=== PATIENT | female | born 1945 | race Caucasian/White ===

== ENCOUNTER 2020-06-14 11:25 | Inpatient (IN) | payer OTHER ==
[2020-06-14 12:18] LABS: Absolute Lymphocytes (CBC) 0.8 K/uL (0.7-4.9); Basophils % 0.5 % (0-1.3); Hematocrit 38.1 % (36.0-45.0); RBC Red Blood Cell Count 3.86 M/uL (3.86-4.86)
--- NOTE | 2020-06-14 12:23 | RAD REPORT ---
EXAM DESCRIPTION: RAD - Chest Single View - 06/14/2020 11:59 am CLINICAL HISTORY: DYSPNEA COMPARISON: February 2018 TECHNIQUE: AP portable chest image was obtained 06/14/2020 11:59 am . FINDINGS: Patient has a baseline interstitial fibrotic pattern. Extensive interstitial and alveolar opacification is present in the lower left lung field. Chest findings are distorted by rotation. Deta il is limited by the densely calcified breast implant capsules. No definitive no opacification in the left base. Heart and vasculature are normal. No measurable pleural effusion and no pneumothorax. No acute bony abnormality seen. No acute aortic findings suspected. IMPRESSION: Moderately large left lung base pneumonia
[2020-06-14 12:28] LABS: Protime INR 1.05
[2020-06-14 12:37] LABS: ALT/SGPT 21 U/L (12-78); AST/SGOT 12 U/L (15-37); Albumin 2.5 g/dL (3.4-5.0); Alkaline Phosphatase 67 U/L (45-117); BUN Blood Urea Nitrogen 46 mg/dL (7-18); Bicarbonate 29 mmol/L (21-32); Bilirubin Direct 0.2 mg/dL (0-0.2); Bilirubin Total 0.4 mg/dL (0.2-1.0); Glucose Level 102 mg/dL (74-106); Magnesium 2.8 mg/dL (1.8-2.4); NT PRO-BNP 6598 pg/mL (<125); Potassium 3.8 mmol/L (3.5-5.1); Protein, Total 7.2 g/dL (6.4-8.2); Sodium Level 141 mmol/L (136-145); Troponin (Emerg Dept Use Only) < 0.02 ng/mL (0.0-0.045)
[2020-06-14 12:41] LABS: Urine Blood NEGATIVE (NEG); Urine Glucose NEGATIVE (NEG); Urine Protein NEGATIVE (NEG)
[2020-06-14] MEDS ORDERED: CEFTRIAXONE/SWI 1gm 1 GM/10 ML SYR ONE (13:00)
[2020-06-14 13:17] LABS: Blood Morphology Comment NOT SEEN (NOT SEEN); Platelet Estimate ADEQ
[2020-06-14] MEDS ORDERED: AZITHROMYCIN IV 500 MG in NA CHLORIDE 0.9% 250 ML IVPB ONE ×4 (14:00)
[2020-06-14] MEDS ORDERED: NA CHLORIDE 0.9% 500 ML ONE (14:11)
[2020-06-14 14:18] LABS: Urine Bacteria <20 /HPF (<20); Urine Culture Reflex Order REFLEXED; Urine Mucus 2+ /HPF (NONE SEEN); Urine RBC <5 /HPF (NONE SEEN)
--- NOTE | 2020-06-14 14:19 | EDPHYS ---
Physician Documentation [facility] Name: Ni Mcgowan Age: 74 yrs Sex: Female : 1945 Arrival Date: 06/14/2020 Time: : Bed 2 Private MD: ED Physician Lalito Benson HPI: 06/14 12:30 This 74 yrs old Female presents to ER via EMS with complaints of shortness of jr8 breath. 12:30 The patient has shortness of breath at rest. Onset: The symptoms/episode began/occurred jr8 gradually. Duration: The symptoms are continuous. The patient's shortness of breath has no apparent modifying factors. Associated signs and symptoms: Pertinent positives: fatigue . Severity of symptoms: At their worst the symptoms were moderate in the emergency department the symptoms are unchanged. The patient has not experienced similar symptoms in the past. The patient has not recently seen a physician. Patient stated that family called EMS after noticing her nodding off more than normal. Stated that she has been more short of breath and more fatigued. Patient alert to person, place, time, event upon arrival. Historical: - Allergies: Percocet; rb1 - Home Meds: gabapentin 600 mg oral tab 1 tab four times a day [Active]; buprenorphine HCl buccal 8 rb1 mg buccal three times a day [Active]; tizanidine 4 mg oral cap 1 cap twice a day [Active]; aspirin 81 mg Oral chew 1 tab once daily [Active]; pantoprazole 40 mg oral TbEC 1 tab once daily [Active]; triamterene-hydrochlorothiazid 37.5-25 mg Oral cap 1 cap once daily [Active]; clonidine HCl 0.2 mg Oral tab 1 tab 2 times per day [Active]; pravastatin 20 mg oral tab 1 tab once daily [Active]; montelukast 10 mg oral tab 1 tab once daily [Active]; carvedilol 25 mg oral tab 1 tab 2 times per day [Active]; acetazolamide 250 mg Oral tab 1 tab once daily [Active]; pro air as needed [Active]; Spiriva with HandiHaler 18 mcg inhalation CpDv 1 cap once daily [Active]; trazodone 100 mg Oral tab [Active]; - PMHx: 11: Fibromyalgia; Emphysema; Scoliosis; Neuropathy; rb1 - PSHx: 11:27 Spleenectomy; Hernia repair; Breast Implants; Hysterectomy; Tonsillectomy; Colon; rb1 - Immunization history:: Adult Immunizations unknown. - Social history:: Smoking status: Patient reports the use of cigarette tobacco products, smokes one pack cigarettes per day. ROS: 12:30 Eyes: Negative for injury, pain, redness, and discharge, ENT: Negative for injury, jr8 pain, and discharge, Neck: Negative for injury, pain, and swelling, Abdomen/GI: Negative for abdominal pain, nausea, vomiting, diarrhea, and constipation, Back: Negative for injury and pain, MS/Extremity: Negative for injury and deformity, Skin: Negative for injury, rash, and discoloration, Neuro: Negative for headache, weakness, numbness, tingling, and seizure. 12:30 Cardiovascular: Positive for edema. 12:30 Respiratory: Positive for dyspnea on exertion, shortness of breath. Exam: 12:30 ENT: Nares patent. No nasal discharge, no septal abnormalities noted. Tympanic jr8 membranes are normal and external auditory canals are clear. Oropharynx with no redness, swelling, or masses, exudates, or evidence of obstruction, uvula midline. Mucous membranes moist. Neck: Trachea midline, no thyromegaly or masses palpated, and no cervical lymphadenopathy. Supple, full range of motion without nuchal rigidity, or vertebral point tenderness. No Meningismus. Cardiovascular: Regular rate and rhythm with a normal S1 and S2. No gallops, murmurs, or rubs. Normal PMI, no JVD. No pulse deficits. Abdomen/GI: Soft, non-tender, with normal bowel sounds. No distension or tympany. No guarding or rebound. No evidence of tenderness throughout. Back: No spinal tenderness. No costovertebral tenderness. Full range of motion. Skin: Warm, dry with normal turgor. Normal color with no rashes, no lesions, and no evidence of cellulitis. MS/ Extremity: Pulses equal, no cyanosis. Neurovascular intact. Full, normal range of motion. Neuro: Awake and alert, GCS 15, oriented to person, place, time, and situation. Cranial nerves II-XII grossly intact. Motor strength 5/5 in all extremities. Sensory grossly intact. Cerebellar exam normal. Normal gait. 12:30 Eyes: Periorbital structures: swelling, that is mild, bilaterally, Pupils: equal, round, and reactive to light and accomodation, Extraocular movements: intact throughout, Conjunctiva: normal, Corneas: are normal, Sclera: no appreciated abnormality, Anterior chamber: normal, Lids and lashes: appear normal. 12:30 Cardiovascular: Rate: normal, Rhythm: regular, Pulses: Pulses are 2+ in right radial artery and left radial artery. Edema: 2+ edema to level of left midcalf, left ankle, left foot, right midcalf, right ankle and right foot. 12:30 Respiratory: the patient does not display signs of respiratory distress, Respirations: tachypnea, that is mild, Breath sounds: decreased breath sounds, that are moderate, are scattered. Vital Signs: 11:26 BP 168 / 85; Pulse 92; Resp 22; Pulse Ox 90% on R/A; jl7 11:26 Temp 98.4; jl7 12:14 BP 130 / 49; Pulse 66; Resp 23 S; Pulse Ox 95% on 2 lpm NC; Pain 0/10; jl7 13:13 BP 107 / 51; Pulse 58; Resp 16 S; Pulse Ox 96% on 2 lpm NC; jl7 14:15 BP 109 / 50; Pulse 72; Resp 17; Pulse Ox 99% on 2 lpm NC; jl7 14:15 Weight 39.46 kg (R); jl7 15:30 BP 121 / 59; Pulse 64; Resp 17 S; Pulse Ox 96% on 2 lpm NC; 7 17:00 BP 110 / 52; Pulse 55; Resp 17; Pulse Ox 98% on 2 lpm NC; 7 MDM: 11:34 Patient medically screened. [facility] 14:17 Data reviewed: vital signs, nurses notes, lab test result(s), EKG, radiologic studies, jr8 plain films. Data interpreted: Pulse oximetry: on room air is 99 %. Interpretation: normal. Counseling: I had a detailed discussion with the patient and/or guardian regarding: the historical points, exam findings, and any diagnostic results supporting the discharge/admit diagnosis, lab results, radiology results, the need for further work-up and treatment in the hospital. 14:53 ED course: Discussed case with Dr. Bates and will see patient . jr8 06/14 11:34 Order name: Basic Metabolic Panel jr8 06/14 11:34 Order name: CBC with Diff 8 06/14 11:34 Order name: LFT's; Complete Time: 13:12 8 06/14 11:34 Order name: Magnesium; Complete Time: 13:12 8 06/14 11:34 Order name: NT PRO-BNP; Complete Time: 13:12 8 06/14 11:34 Order name: PT-INR; Complete Time: 13:12 8 06/14 11:34 Order name: Troponin (emerg Dept Use Only); Complete Time: 13:12 8 06/14 11:34 Order name: Urine For Protein, Random; Complete Time: 12:27 8 06/14 11:35 Order name: Basic Metabolic Panel; Complete Time: 13:12 EDSC 06/14 11:35 Order name: CBC with Automated Diff; Complete Time: 13:43 EDMS 06/14 12:28 Order name: Blood Culture Adult (2) [facility] 06/14 12:28 Order name: Procalcitonin; Complete Time: 13:12 [facility] 06/14 12:33 Order name: Urine Dipstick--Ancillary (enter results) 1 06/14 11:34 Order name: XRAY Chest (1 view); Complete Time: 12:27 8 06/14 11:34 Order name: EKG; Complete Time: 11:35 [facility] 06/14 11:34 Order name: Cardiac monitoring; Complete Time: 12:14 8 06/14 12:33 Order name: Urine Dipstick-Ancillary; Complete Time: 13:12 EDSC 06/14 13:18 Order name: Manual Differential; Complete Time: 13:43 EDSC 06/14 13:58 Order name: Urine Microscopic Only; Complete Time: 14:19 8 06/14 14:20 Order name: Urine Culture EDSC 06/14 14:50 Order name: TSH; Complete Time: 15:48 8 06/14 14:50 Order name: Cortisol; Complete Time: 15:48 8 06/14 14:52 Order name: SARS-COV-2 RT PCR; Complete Time: 18:15 EDSC 06/14 15:49 Order name: ABG; Complete Time: 16:35 8 06/14 15:54 Order name: CONS Physician Consult EDSC 06/14 11:34 Order name: EKG - Nurse/Tech; Complete Time: 12:14 8 06/14 11:34 Order name: IV Saline Lock; Complete Time: 12:13 8 06/14 11:34 Order name: Labs collected and sent; Complete Time: 12:13 8 06/14 11:34 Order name: O2 Per Protocol; Complete Time: 12:13 8 06/14 11:34 Order name: O2 Sat Monitoring; Complete Time: 12:14 jr8 Administered Medications: Discontinued: NS 0.9% 500 ml IV at bolus once 13:05 Drug: Rocephin 1 grams Route: IV; Rate: calculated rate; Site: right forearm; jl7 13:08 Follow up: Response: No adverse reaction; IV Status: Completed infusion jl7 13:12 Drug: Zithromax 500 mg Route: IVPB; Infused Over: 1 hrs; Site: right forearm; jl7 14:12 Follow up: Response: No adverse reaction; IV Status: Completed infusion jl7 14:14 Drug: NS 0.9% 500 ml Route: IV; Rate: bolus; Site: right forearm; jl7 15:30 Follow up: IV Status: Completed infusion; Order to discontinue infusion jl7 14:44 Drug: Lasix 40 mg {Note: BP 109/50, P 79.} Route: IVP; Site: right forearm; rb1 16:37 Follow up: Response: No adverse reaction jl7 Disposition: 18:18 Co-signature as Attending Physician, Lalito Benson MD. rn Disposition: 06/14/20 14:18 Hospitalization ordered by Cj Burden for Inpatient Admission. Preliminary diagnosis are Acute and chronic respiratory failure with hypoxia, Chronic obstructive pulmonary disease with (acute) exacerbation, Pneumonia due to other specified bacteria. - Bed requested for Telemetry/MedSurg (Inpatient). - Status is Inpatient Admission. jl7 - Condition is Fair. - Problem is new. - Symptoms have improved. Signatures: Dispatcher [employer] Salima Shen RN RN dw Nieto, Roman, MD MD rn Martinez, Eric em1 Roszak, Josh, PA PA jr8 Miriam Moreno, RN RN rb1 Navid Nolasco RN RN jl7 Corrections: (The following items were deleted from the chart) 14:31 14:18 Hospitalization Ordered by Dwain Moura MD for Inpatient Admission. Preliminary jr8 diagnosis is Acute and chronic respiratory failure with hypoxia; Chronic obstructive pulmonary disease with (acute) exacerbation; Pneumonia due to other specified bacteria. Bed requested for Telemetry/MedSurg (Inpatient). Status is Inpatient Admission. Condition is Fair. Problem is new. Symptoms have improved. jr8 14:52 12:29 CORONAVIRUS+ ordered. EDMS EDMS 16:47 14:31 06/14/2020 14:18 Hospitalization Ordered by A Bertram GALLARDO for Inpatient Admission. em1 Preliminary diagnosis is Acute and chronic respiratory failure with hypoxia; Chronic obstructive pulmonary disease with (acute) exacerbation; Pneumonia due to other specified bacteria. Bed requested for Telemetry/MedSurg (Inpatient). Status is Inpatient Admission. Condition is Fair. Problem is new. Symptoms have improved. jr8 16:50 16:47 06/14/2020 14:18 Hospitalization Ordered by A Bertram GALLARDO for Inpatient Admission. em1 Preliminary diagnosis is Acute and chronic respiratory failure with hypoxia; Chronic obstructive pulmonary disease with (acute) exacerbation; Pneumonia due to other specified bacteria. Bed requested for Telemetry/MedSurg (Inpatient). Status is Inpatient Admission. Condition is Fair. Problem is new. Symptoms have improved. em1 17:14 16:50 06/14/2020 14:18 Hospitalization Ordered by A Bertram GALLARDO for Inpatient Admission. dw Preliminary diagnosis is Acute and chronic respiratory failure with hypoxia; Chronic obstructive pulmonary disease with (acute) exacerbation; Pneumonia due to other specified bacteria. Bed requested for Telemetry/MedSurg (Inpatient). Status is Inpatient Admission. Condition is Fair. Problem is new. Symptoms have improved. em1 18:18 17:14 06/14/2020 14:18 Hospitalization Ordered by A Bertram GALLARDO for Inpatient Admission. jl7 Preliminary diagnosis is Acute and chronic respiratory failure with hypoxia; Chronic obstructive pulmonary disease with (acute) exacerbation; Pneumonia due to other specified bacteria. Bed requested for Telemetry/MedSurg (Inpatient). Status is Inpatient Admission. Condition is Fair. Problem is new. Symptoms have improved. dw
--- NOTE | 2020-06-14 14:19 | ER ---
Nurse's Notes [facility] Name: Ni Mcgowan Age: 74 yrs Sex: Female : 1945 Arrival Date: 06/14/2020 Time: 11:27 Bed 2 Private MD: Diagnosis: Acute and chronic respiratory failure with hypoxia;Chronic obstructive pulmonary disease with (acute) exacerbation;Pneumonia due to other specified bacteria Presentation: 06/14 11:27 Chief complaint: EMS states: Pt. is feeling weak and unable to sit up. Bilateral edema rb1 noted to lower extremities and bilateral eyes. Pt. is A \T\ O x 4, BP 157/73, P 105, 91% 2 L NC T 99.3. History of Scoliosis, Emphysema, Breast Implants, and Neuropathy. Pt. took Albuterol at 1057 at home. 11:27 Method Of Arrival: EMS: [facility] rb1 11:27 Acuity: ANNA 3 rb1 11:54 Coronavirus screen: Client denies travel out of the [place] in the last 14 days. At this jl7 time, the client does not indicate any symptoms associated with coronavirus-19. Ebola Screen: No symptoms or risks identified at this time. Initial Sepsis Screen: Does the patient meet any 2 criteria? No. Patient's initial sepsis screen is negative. Does the patient have a suspected source of infection? No. Patient's initial sepsis screen is negative. Risk Assessment: Do you want to hurt yourself or someone else? Patient reports no desire to harm self or others. Onset of symptoms is unknown. Care prior to arrival: None. Transition of care: patient was not received from another setting of care. Triage Assessment: 11:27 General: Appears in no apparent distress. Behavior is calm, cooperative. Neuro: Level rb1 of Consciousness is awake, alert, obeys commands, Oriented to person, place, time, situation. Neuro: Reports weakness. Cardiovascular: Patient's skin is warm and dry. Respiratory: Airway is patent Respiratory effort is even, unlabored, Respiratory pattern is regular, symmetrical. Musculoskeletal: Range of motion: intact in all extremities. Historical: - Allergies: 11:27 Percocet; rb1 - Home Meds: 11:27 gabapentin 600 mg oral tab 1 tab four times a day [Active]; buprenorphine HCl buccal 8 rb1 mg buccal three times a day [Active]; tizanidine 4 mg oral cap 1 cap twice a day [Active]; aspirin 81 mg Oral chew 1 tab once daily [Active]; pantoprazole 40 mg oral TbEC 1 tab once daily [Active]; triamterene-hydrochlorothiazid 37.5-25 mg Oral cap 1 cap once daily [Active]; clonidine HCl 0.2 mg Oral tab 1 tab 2 times per day [Active]; pravastatin 20 mg oral tab 1 tab once daily [Active]; montelukast 10 mg oral tab 1 tab once daily [Active]; carvedilol 25 mg oral tab 1 tab 2 times per day [Active]; acetazolamide 250 mg Oral tab 1 tab once daily [Active]; pro air as needed [Active]; Spiriva with HandiHaler 18 mcg inhalation CpDv 1 cap once daily [Active]; trazodone 100 mg Oral tab [Active]; - PMHx: 11:27 Fibromyalgia; Emphysema; Scoliosis; Neuropathy; rb1 - PSHx: 11:27 Spleenectomy; Hernia repair; Breast Implants; Hysterectomy; Tonsillectomy; Colon; rb1 - Immunization history:: Adult Immunizations unknown. - Social history:: Smoking status: Patient reports the use of cigarette tobacco products, smokes one pack cigarettes per day. Screenin:30 Abuse screen: Denies threats or abuse. Denies injuries from another. Nutritional jl7 screening: No deficits noted. Tuberculosis screening: No symptoms or risk factors identified. Fall Risk Fall in past 12 months (25 points). Secondary diagnosis (15 points) impaired mobility, IV access (20 points). Ambulatory Aid- Crutches/Cane/Walker (15 pts). Gait- Weak (10 pts.). Mental Status- Oriented to own ability (0 pts). Total Patiño Fall Scale indicates High Risk Score (45 or more points). Fall prevention measures have been instituted. Side Rails Up X 2 Placed Close to Nursing Station Frequent Obs/Assessments Occuring Family Present and informed to notify staff if the need to leave the bedside As available patient and family educated on Fall Prevention Program and Strategies. Assessment: 11:30 General: Appears in no apparent distress. uncomfortable, Behavior is calm, cooperative, jl7 appropriate for age. Pain: Denies pain. Neuro: Level of Consciousness is awake, alert, obeys commands, Oriented to person, place, time, situation, Weakness all over. Speech is normal. Cardiovascular: Patient's skin is warm and dry. Edema is 2+ to right midcalf, right ankle, right foot and right toes edema noted to bilateral eyes. Respiratory: Airway is patent Respiratory effort is even, unlabored, Respiratory pattern is symmetrical, tachypnea. GI: Abdomen is round distended, Stools are reported to be constipated. Last BM was June 07, 2020. : No signs and/or symptoms were reported regarding the genitourinary system. Derm: Skin is pink, warm \T\ dry. Musculoskeletal: Scoliosis noted. 13:13 Reassessment: Patient appears in no apparent distress at this time. Patient and/or jl7 family updated on plan of care and expected duration. Pain level reassessed. Neuro: Level of Consciousness is obeys commands, confused, Oriented to person, place, time, situation. 14:16 Reassessment: Patient appears in no apparent distress at this time. No changes from jl7 previously documented assessment. Patient and/or family updated on plan of care and expected duration. Pain level reassessed. 14:47 Reassessment: Patient appears in no apparent distress at this time. Daughter is at the [facility] bedside. 16:00 Reassessment: Patient appears in no apparent distress at this time. No changes from jl7 previously documented assessment. Patient and/or family updated on plan of care and expected duration. Pain level reassessed. Patient is alert, oriented x 3, equal unlabored respirations, skin warm/dry/pink. 17:00 Reassessment: Patient appears in no apparent distress at this time. Patient and/or jl7 family updated on plan of care and expected duration. Pain level reassessed. Patient is alert, oriented x 3, equal unlabored respirations, skin warm/dry/pink. Vital Signs: 11:26 BP 168 / 85; Pulse 92; Resp 22; Pulse Ox 90% on R/A; jl7 11:26 Temp 98.4; jl7 12:14 BP 130 / 49; Pulse 66; Resp 23 S; Pulse Ox 95% on 2 lpm NC; Pain 0/10; jl7 13:13 BP 107 / 51; Pulse 58; Resp 16 S; Pulse Ox 96% on 2 lpm NC; jl7 14:15 BP 109 / 50; Pulse 72; Resp 17; Pulse Ox 99% on 2 lpm NC; jl7 14:15 Weight 39.46 kg (R); jl7 15:30 BP 121 / 59; Pulse 64; Resp 17 S; Pulse Ox 96% on 2 lpm NC; jl7 17:00 BP 110 / 52; Pulse 55; Resp 17; Pulse Ox 98% on 2 lpm NC; jl7 ED Course: 11:26 Arm band placed on right wrist. jl7 11:27 Patient arrived in ED. em1 11:30 Patient has correct armband on for positive identification. Placed in gown. Bed in low jl7 position. Call light in reach. Side rails up X 1. gambling monitor on. Pulse ox on. NIBP on. Warm blanket given. 11:30 Initial lab(s) drawn, by me, sent to lab. Urine collected: clean catch specimen, clear, jl7 molly colored, EKG done, by ED staff, reviewed by Palomo CALL. Inserted saline lock: 20 gauge in right forearm, using aseptic technique. Blood collected. 11:34 aPlomo Mckenzie PA is PHCP. jr8 11:34 Lalito Benson MD is Attending Physician. jr8 11:35 Triage completed. rb1 11:42 Navid Nolasco, EMERSON is Primary Nurse. jl7 12:00 XRAY Chest (1 view) In Process Unspecified. EDMS 12:05 First set of blood cultures drawn by me. jl7 12:45 Second set of blood cultures drawn by ED staff, COVID-19 swab sent to lab. jl7 13:25 Urine Dipstick--Ancillary (enter results) Sent. jl7 13:25 Blood Culture Adult (2) Sent. jl7 13:25 Basic Metabolic Panel Sent. jl7 13:26 CBC with Diff Sent. jl7 13:27 No provider procedures requiring assistance completed. Patient admitted, IV remains in jl7 place. intact, No redness/swelling at site. 14:18 Dwain Moura MD is Hospitalizing Provider. jr8 14:31 Cj Burden MD is Hospitalizing Provider. jr8 16:38 Urine Culture Sent. jl7 Administered Medications: Discontinued: NS 0.9% 500 ml IV at bolus once 13:05 Drug: Rocephin 1 grams Route: IV; Rate: calculated rate; Site: right forearm; jl7 13:08 Follow up: Response: No adverse reaction; IV Status: Completed infusion jl7 13:12 Drug: Zithromax 500 mg Route: IVPB; Infused Over: 1 hrs; Site: right forearm; jl7 14:12 Follow up: Response: No adverse reaction; IV Status: Completed infusion jl7 14:14 Drug: NS 0.9% 500 ml Route: IV; Rate: bolus; Site: right forearm; jl7 15:30 Follow up: IV Status: Completed infusion; Order to discontinue infusion jl7 14:44 Drug: Lasix 40 mg {Note: BP 109/50, P 79.} Route: IVP; Site: right forearm; rb1 16:37 Follow up: Response: No adverse reaction trisha Outcome: 14:18 Decision to Hospitalize by Provider. sara 18:17 Admitted to Tele accompanied by tech, family with patient, via wheelchair, room 230, trisha with chart, Report called to EMERSON Murphy 18:17 Condition: stable 18:17 Discharge instructions given to patient, family, Instructed on the need for admit, Demonstrated understanding of instructions. 18:18 Patient left the ED. trisha Signatures: Dispatcher [employer] EDAdebayo Henry em1 Palomo Mckenzie PA PA jr8 Miriam Moreno, RN RN rb1 Navid Nolsaco RN RN [email or web address] Corrections: (The following items were deleted from the chart) 13:27 11:05 First set of blood cultures drawn by trisha jane 14:52 13:25 CORONAVIRUS+MR.LAB.BRZ drawn and sent. trisha SALDIVAR
[2020-06-14] MEDS ORDERED: FUROSEMIDE 40 MG/4 ML VIAL ONE (14:52)
[2020-06-14 16:31] LABS: Blood Gas Oxyhemoglobin 46.6 % (94-97); Blood O2 Saturation 48.7 % (92-98.5)
[2020-06-14] MEDS ORDERED: ONDANSETRON 4 MG/2 ML VIAL IV PRN (18:30)
[2020-06-14] MEDS ORDERED: ALBUTEROL 2.5 MG/3 ML NEB SOL NEB PRN (18:30)
[2020-06-14] MEDS ORDERED: IPRATROPIUM BROM 0.5MG/2.5ML NEB PRN (18:30)
[2020-06-15] MEDS ORDERED: CEFTRIAXONE 1 GM/NS 50 ML 1 GM/50 ML BAG IV SCH (02:00)
[2020-06-15] MEDS: ACETAMINOPHEN 500 MG TAB PO PRN ×2 (02:49→02:51)
[2020-06-15] MEDS: CEFTRIAXONE/SWI 1gm 1 GM/10 ML SYR IV SCH ×2 (02:49→14:49)
[2020-06-15] MEDS: carvediloL 25 MG TAB PO SCH ×2 (05:42→18:12)
[2020-06-15 06:06] LABS: Absolute Lymphocytes (CBC) 0.7 K/uL (0.7-4.9); Basophils % 0.1 % (0-1.3); Hematocrit 33.1 % (36.0-45.0); Lymphocytes % 7.3 % (15.3-44.8); MPV 10.7 fL (7.6-11.3); RBC Red Blood Cell Count 3.37 M/uL (3.86-4.86)
[2020-06-15 06:16] LABS: Phosphorus 4.3 mg/dL (2.5-4.9); Potassium 3.9 mmol/L (3.5-5.1)
[2020-06-15 07:36] LABS: White Blood Cell Scan OK (OK)
[2020-06-15 07:37] LABS: Blood Morphology Comment NOT SEEN (NOT SEEN); Platelet Estimate ADEQ
[2020-06-15] MEDS: cloNIDine HCL 0.1 MG TAB PO SCH ×2 (10:09→21:06)
[2020-06-15] MEDS: GABAPENTIN 300 MG CAP PO SCH ×2 (10:09→14:00)
[2020-06-15] MEDS: METHYLPREDNISOLONE 40 MG INJ IV SCH ×2 (10:09→21:16)
[2020-06-15] MEDS: MONTELUKAST 10 MG TAB PO SCH (10:10)
[2020-06-15] MEDS: acetaZOLAMIDE 250 MG TAB PO SCH (10:11)
[2020-06-15] MEDS: ASPIRIN EC 81 MG TAB PO SCH (10:12)
[2020-06-15] MEDS: TIOTROPIUM 5 SPRAYS/INHALER IH SCH (10:52)
[2020-06-15] MEDS: DULERA 200/5 (MOMETASONE/FORMOTEROL) INHALER IH SCH ×2 (10:52→21:09)
[2020-06-15] MEDS: AZITHROMYCIN IV 250 MG in NA CHLORIDE 0.9% 250 ML IVPB SCH (12:21)
[2020-06-15] MEDS ORDERED: ALBUTEROL 2.5 MG/3 ML NEB SOL NEB PRN (15:00)
[2020-06-15] MEDS ORDERED: IPRATROPIUM BROM 0.5MG/2.5ML NEB PRN (15:00)
[2020-06-15] MEDS: GABAPENTIN 600 MG TAB PO SCH ×2 (18:00→21:00)
[2020-06-15 19:33] LABS: Urine Protein/Creatinine Ratio 0.58 ratio (<0.15)
--- NOTE | 2020-06-15 20:36 | PN ---
Date of Progress Note: 06/15/2020 Subjective: The patient was seen this morning for followup. She was lying in bed, not in distress. Denies any new complaints. Not in any respiratory distress. Objective: Vital Signs: Reviewed. HEENT: Unremarkable. Lungs: Bilateral good equal air entry. Clear to auscultation except presence of some rales noted in left lung base. Not using accessory muscles of respiration. Heart: Sounds normal. Abdomen: Soft. Bowel sounds normal. No guarding, rigidity, tenderness, or distention. Extremities: Trace leg edema. Laboratory Data: Sodium 141, potassium 3.9, chloride 105, bicarb 30, BUN 50, creatinine 1.14, glucos e 93. Troponin less than 0.02. White count 9.9, hemoglobin 10.9, platelets 203. Blood culture abhay ins negative. Impression: 1.Pneumonia. 2.Acute exacerbation of chronic obstructive pulmonary disease. 3.Hypertension. 4.Hyperlipidemia. 5.Osteoarthritis, multiple sites. 6.Anemia, unspecified. Plan: We will go ahead and continue current medications. Continue steroid, antibiotic. We will con tinue oxygen nebulizer treatment and physical therapy to continue to help ambulate the patient. Nutritional supplement will be given and we will give DVT prophylaxis per order. We will see her juventino leah for followup. MONSE/MODL Voice ID: [id number] Report ID: [id number]
[2020-06-15] MEDS: ENSURE ENLIVE 237 ML CAN PO SCH (21:00)
[2020-06-15] MEDS: ENSURE HIGH PROTEIN 237 ML CAN PO SCH (21:09)
--- NOTE | 2020-06-16 00:36 | HP ---
Date of Admission: 06/14/2020 Chief Complaint: Cough, congestion, shortness of breath, wheezing, and passing out. History Of Present Illness: This is a 74-year-old pleasant female patient, who lives at home, has [place] [employer] and continues to smoke, lately has not been feeling good. She has chronic back pain, for which jose armando mccloud sees senior painter. In last 2 to 3 days, she is having increasing problem with cough, congestion, coughing up some mucus, has shortness of breath with any day-to-day activity, and wheezi ng. She also has had some fainting spells in last couple of days. Today, she was standing at sink a nd all of a sudden while she was there, she fainted. While she was standing at sink, she did not fal l down. With all these worsening symptoms, she was brought into emergency room after she was evaluat ed. She was admitted to the hospital with pneumonia and acute exacerbation of COPD problem. When I saw her, she was in the room and her family member was with her at bedside. Allergies: CITALOPRAM MAKES HER FEEL WEIRD, IODINE CAUSES RASH, OXYCODONE CAUSES HALLUCINATION. Medications: List reviewed. Review of Systems: Respiratory: As mentioned above. 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 Constitutional: Generalized weakness and body aches. GI: Constipation. All other systems reviewed and negative. Past Medical History: COPD, hypertension, hyperlipidemia, gastroesophageal reflux disease, leg edema , spinal stenosis in lumbar spine region, osteoarthritis at multiple sites, ITP in remission. Past Surgical History: Tonsillectomy, hysterectomy, foot surgery, splenectomy, breast augmentation. Family History: Father , had Alzheimer disease, hypertension, and rheumatoid arthritis. Mother , had hypertension and carotid artery stenosis. Sister with hypertension, stroke, COPD, coronary artery disease. Social History: Positive for smoking. Use of alcohol negative. The patient has longstanding histor y of smoking. For a while, she did quit smoking, but now she has started to smoke again. Physical Examination: Vital Signs: Temperature 97.6, pulse 62, respiratory rate 16, blood pressure 151/67, oxygen saturati on 95%. Height 5 feet 7 inches, weight 86 pounds and 9 ounces. General: The patient appears weaker than normal. HEENT: Head atraumatic, normocephalic. Conjunctivae nonerythematous. Sclerae white. Mouth, no thr ush or edema noted. Ears/Nose, no mass, lesion, discharge noted. Neck: Supple. No JVD, lymph nodes, bruit, thyromegaly noted. Lungs: Presence of rales noted in left lower lung field. Heart: Normal heart sounds. No murmur or gallop. Abdomen: Soft. Bowel sounds normal. No guarding, rigidity, tenderness, mass, hepatosplenomegaly, d istention, or bruit noted. Extremities: Bilateral grade 1 pedal edema. Skin: No rash, ulcer, cellulitis. Lymphatics: No lymph node enlargement in neck, supraclavicular, infraclavicular region. Neurologic: No focal neurological deficit. Chest: Unremarkable. External Genitalia: Deferred. Rectal: Deferred. Back: Kyphosis. Laboratory Data: White count 11.7, hemoglobin 12.5, platelets 222. INR 1.05. Blood gas showed pH 7 .38, pCO2 46.7, pO2 22.6, oxygen saturation 48.7 on 28% FiO2. This looks like likely venous blood ga s. Sodium 141, potassium 3.8, chloride 107, bicarb 29, BUN 46, creatinine 1.16, glucose 102. Liver function tests unremarkable. Magnesium 2.8. Troponin less than 0.02. Procalcitonin 0.08. ProBNP 6 598. TSH 2.0. Cortisol level 16.27. Urinalysis showed 5-10 WBC, less than 20 bacteria. COVID-19 t est negative. Chest x-ray shows evidence of moderately large left lung base pneumonia. Impression: 1.Pneumonia. 2.Acute exacerbation of chronic obstructive pulmonary disease. 3.Malnutrition. 4.Hypertension. 5.Hyperlipidemia. 6.Gastroesophageal reflux disease. 7.Leg edema. 8.Lumbar spinal stenosis. 9.Osteoarthritis, multiple sites. Plan: We will go ahead and admit the patient to hospital for further evaluation and management of th is problem. The patient is appropriate for inpatient and is [facility]. We will give her empiric antibiotics at this point, which is azithromycin and ceftriaxone. Oxyge n nebulizer treatment and IV steroid will be given. Home medications will be continued per order. W e will go ahead and consult physical therapy to help ambulate the patient. Nutritional supplement wi ll be given per order. I will see her tomorrow for followup. Details and plan of treatment discusse d with the patient and her family member. DVT prophylaxis will be given per order. MONSE/SUKI Voice ID: [id number]
[2020-06-16] MEDS: CEFTRIAXONE/SWI 1gm 1 GM/10 ML SYR IV SCH ×2 (01:24→16:31)
[2020-06-16 05:28] VITALS: BMI 14.3
[2020-06-16] MEDS: carvediloL 25 MG TAB PO SCH ×2 (05:46→16:34)
[2020-06-16 06:45] LABS: Phosphorus 3.7 mg/dL (2.5-4.9); Potassium 4.1 mmol/L (3.5-5.1)
[2020-06-16] MEDS: ENSURE ENLIVE 237 ML CAN PO SCH ×2 (09:00→20:42)
[2020-06-16] MEDS: TIOTROPIUM 5 SPRAYS/INHALER IH SCH (09:00)
[2020-06-16] MEDS: ASPIRIN EC 81 MG TAB PO SCH (09:00)
[2020-06-16] MEDS: DULERA 200/5 (MOMETASONE/FORMOTEROL) INHALER IH SCH ×2 (09:00→20:44)
[2020-06-16] MEDS: METHYLPREDNISOLONE 40 MG INJ IV SCH ×2 (09:00→20:42)
[2020-06-16] MEDS: MONTELUKAST 10 MG TAB PO SCH (09:00)
[2020-06-16] MEDS: acetaZOLAMIDE 250 MG TAB PO SCH (09:00)
[2020-06-16] MEDS: cloNIDine HCL 0.1 MG TAB PO SCH ×2 (09:00→20:42)
[2020-06-16] MEDS: GABAPENTIN 600 MG TAB PO SCH ×4 (09:00→20:43)
[2020-06-16] MEDS: ENSURE HIGH PROTEIN 237 ML CAN PO SCH ×2 (09:00→20:42)
[2020-06-16] MEDS ORDERED: ENOXAPARIN 30 MG/0.3 ML SQ ONE (09:45)
--- NOTE | 2020-06-16 11:03 | RAD REPORT ---
EXAM DESCRIPTION: RAD - Chest Pa And Lat (2 Views) - 06/16/2020 10:26 am CLINICAL HISTORY: pneumonia COMPARISON: Portable June 14, 2020, two view chest February 18, 2018 TECHNIQUE: Frontal and lateral views of the chest were obtained. The side is incorrectly labeled on the 2 frontal projections FINDINGS: Left base pneumonia findings are still identifiable. Severity has decreased slightly from the June 14 examination. Substantial infiltrate remains. No new right lung field or upper left lung field finding. Heart size is normal and central vasculature is within normal limits. No pleural eff usion or pneumothorax seen. No acute bony finding noted. No aortic abnormality. IMPRESSION: Partial clearing of left lung base pneumonia since June 14. Significant infiltrate rem ains. No new infiltrate and no failure or volume overload.
[2020-06-16] MEDS: AZITHROMYCIN IV 250 MG in NA CHLORIDE 0.9% 250 ML IVPB SCH (12:58)
--- NOTE | 2020-06-16 13:40 | PN ---
Date of Progress Note: 06/16/2020 Subjective: The patient was seen this morning for followup. No new complaints or problems reported by the patient. She was lying in bed, not in distress except complaining of her chronic back pain. Overall, she does look better compared to last couple of days and she also reports that she feels bet ter compared to before. Objective: Vital Signs: Reviewed. HEENT: Unremarkable. Lungs: Bilateral good equal air entry except diminished air entry in the left lower lung region. No t using any accessory muscles of respirations. Heart: Sounds normal. Abdomen: Soft, bowel sounds normal. No guarding, rigidity, tenderness, distention. Extremities: No leg edema. Laboratory Data: Sodium 139, potassium 4.1, chloride 105, bicarb 31, BUN 55, creatinine 1.12, glucos e 180, albumin 2. Impression: 1.Pneumonia. 2.Acute exacerbation of chronic obstructive pulmonary disease. 3.Malnutrition. 4.Hypertension. 5.Leg edema. 6.Osteoarthritis, multiple sites. Plan: We will go ahead and continue current antibiotics. We will repeat chest x-ray today. The pat ient was advised to ambulate as she tolerates. DVT prophylaxis will be given per order. Details and plan of treatment discussed with her. She does not know if and when and where she had pneumonia vac cine. We will have nursing staff call her pharmacy to get some information regarding that and the patient does report that she had the flu vacc ine about a week or 2 weeks ago. MONSE/MODL Voice ID: [id number] Report ID: [id number]
[2020-06-17] MEDS: CEFTRIAXONE/SWI 1gm 1 GM/10 ML SYR IV SCH ×2 (01:48→13:04)
[2020-06-17] MEDS: carvediloL 25 MG TAB PO SCH ×2 (05:31→16:13)
[2020-06-17 06:41] LABS: Albumin 1.9 g/dL (3.4-5.0); Phosphorus 2.5 mg/dL (2.5-4.9); Potassium 3.2 mmol/L (3.5-5.1)
[2020-06-17] MEDS: acetaZOLAMIDE 250 MG TAB PO SCH (07:32)
[2020-06-17] MEDS: ASPIRIN EC 81 MG TAB PO SCH (07:32)
[2020-06-17] MEDS: cloNIDine HCL 0.1 MG TAB PO SCH (07:33)
[2020-06-17] MEDS: MONTELUKAST 10 MG TAB PO SCH (07:33)
[2020-06-17] MEDS: TIOTROPIUM 5 SPRAYS/INHALER IH SCH (07:34)
[2020-06-17] MEDS: GABAPENTIN 600 MG TAB PO SCH ×3 (07:34→16:15)
[2020-06-17] MEDS: DULERA 200/5 (MOMETASONE/FORMOTEROL) INHALER IH SCH (07:35)
[2020-06-17] MEDS: METHYLPREDNISOLONE 40 MG INJ IV SCH (07:36)
[2020-06-17] MEDS: ENSURE ENLIVE 237 ML CAN PO SCH (07:37)
[2020-06-17] MEDS: ENSURE HIGH PROTEIN 237 ML CAN PO SCH (07:37)
[2020-06-17] MEDS ORDERED: ENOXAPARIN 30 MG/0.3 ML SQ SCH (09:00)
[2020-06-17] MEDS: AZITHROMYCIN IV 250 MG in NA CHLORIDE 0.9% 250 ML IVPB SCH (12:00)
[2020-06-17 12:12] VITALS: O2SAT 95
[2020-06-17 17:30] VITALS: TEMP 98.2
[2020-06-17 17:33] VITALS: BP 150/70
--- NOTE | 2020-06-18 08:58 | ECHO ---
HEIGHT: 5 ft 7 in WEIGHT: 91 lb 0 oz DATE OF STUDY: REFER DR: Joseph Mckenzie 2-DIMENSIONAL: YES M.MODE: YES DOPPLER: YES COLOR FLOW: YES TDS: YES PORTABLE: DEFINITY: BUBBLE STUDY: DIAGNOSIS: EDEMA CARDIAC HISTORY: CATHERIZATION: NO SURGERY: NO PROSTHETIC VALVE: NO PACEMAKER: NO MEASUREMENTS (cm) DIASTOLIC (NORMALS) SYSTOLIC (NORMALS) IVSd 1.0 (0.6-1.2) LA Diam 3.1 (1.9-4.0) LVEF 77% LVIDd 3.1 (3.5-5.7) LVIDs 1.7 (2.0-3.5) %FS 45% LVPWd 0.8 (0.6-1.2) Ao Diam (2.0-3.7) 2 DIMENSIONAL ASSESSMENT: RIGHT ATRIUM: NORMAL LEFT ATRIUM: NORMAL RIGHT VENTRICLE: NORMAL LEFT VENTRICLE: NORMAL TRICUSPID VALVE: NORMAL MITRAL VALVE: MITRAL ANNULAR CALCIFICATION PULMONIC VALVE: NORMAL AORTIC VALVE: SCLEROSIS PERICARDIAL EFFUSION: NONE AORTIC ROOT: NORMAL LEFT VENTRICULAR WALL MOTION: NORMAL EJECTION FRACTION. DECREASED LEFT VENTRICULAR COMPLIANCE. 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 AORTIC SCLEROSIS. CALCIFIED PAPILLARY MUSCLE. NORMAL EJECTION FRACTION. TECHNOLOGIST: JAJA MORALES
== END 2020-06-17 17:36 | disposition home or self-care (01) | DRG 190 ==
LOC: ER 11:25 → ERHOLD 15:52 → 2ND 17:41
PROVIDERS: ADMIT Internal Medicine; ATTEND Internal Medicine
DX: J44.1 Chronic obstructive pulmonary disease with (acute) exacerbation (principal); J18.9 Pneumonia, unspecified organism; J44.0 Chronic obstructive pulmonary disease with (acute) lower respiratory infection; I10 Essential (primary) hypertension; E78.5 Hyperlipidemia, unspecified; G89.29 Other chronic pain; K21.9 Gastro-esophageal reflux disease without esophagitis; F17.200 Nicotine dependence, unspecified, uncomplicated; M48.061 Spinal stenosis, lumbar region without neurogenic claudication; M54.9 Dorsalgia, unspecified; D64.9 Anemia, unspecified; M19.90 Unspecified osteoarthritis, unspecified site; R60.9 Edema, unspecified; Z88.5 Allergy status to narcotic agent; Z79.899 Other long term (current) drug therapy; Z79.82 Long term (current) use of aspirin; Z90.710 Acquired absence of both cervix and uterus; Z88.8 Allergy status to other drugs, medicaments and biological substances; Z20.828 Contact with and (suspected) exposure to other viral communicable diseases
CPT/HCPCS: 36415; 71045; 71046; 80048; 80069; 80076; 81003; 81015; 82533; 82570; 82805; 83735; 83880; 84145; 84156; 84443; 84484; 84550; 85025; 85610; 87040; 87086; 87088; 93005; 93306; 94640; 94760; 96361; 96365; 96375; 97116; 97161; 97530; 99285; J0456; J0696; J1650; J1940; J2920; J7040; J7050; J7606; U0003

== ENCOUNTER 2022-10-21 10:10 | Inpatient (IN) | payer OTHER ==
--- OUTSIDE RECORDS SUMMARY | 2022-10-21 10:14 | XMS REPORT | Continuity of Care Document ---
:1945 Author Organization [facility] t Address [address] [place] [address] Care Team Providers Name Role Phone Jignesh Burden Primary Care Physician Natalie Warren RN Attending Clinician Unavailable Ramos Pelaez DO Attending Clinician Edward North MD Attending Clinician Anderson Shannon MD, Vee Attending Clinician Henrietta Riley MD Attending Clinician HENRIETTA RILEY Attending Clinician Unavailable Anderson Shannon MD, Vee Admitting Clinician VEE BAUER Admitting Clinician Unavailable Payers Payer Name Policy Type Policy Number Effective Date Expiration Date S ource Problems Condition Condition Condition Status Onset Resolution Last Treating Co mments Source Name Details Category Date Date Treatment Clinician Date LAURI (acute LAURI (acute Disease Active U nivers kidney kidney 4-12 ity of injury) injury) 00:00: [place] 00 [facility] Allergies, Adverse Reactions, Alerts Allergy Allergy Status Severity Reaction(s) Onset Inactive Treating Comm ents Source Name Type Date Date Clinician NO KNOWN Drug Active Univers ALLERGIE Class [facility] Social History Social Habit Start Date Stop Date Quantity Comments Source Exposure to Not sure [facility] SARS-CoV-2 [facility] (event) Tobacco use and 2021-12-18 2021-12-18 Current user Univers [facility] exposure 00:00:00 00:00:00 Medical Branch Sex Ass[birth year] At [birth year] [facility] [place] [facility]:00 00:00:00 Medical Branch Smoking Status Start Date Stop Date Source Current every day smoker 2021-12-18 00:00:00 [facility] Medical Branch Medications Ordered Filled Start Stop Current Ordering Indication Dosage Frequency Signature Comments Components Source Medication Medication Date Date Medication? Clinician (SIG) Name Name gabapentin 2021- No [id number] 600mg Take 1 Univers 600 mg 4-15 05-16 [id number] tablet by ity o f tablet 00:00: 04:59 mouth [place] 00 :00 daily for Medical 30 days. Branch amLODIPine 2021- No [id number] 5mg Take 1 Univers 5 mg tablet 4-15 05-16 [id number] tablet by ity of 00:00: 04:59 mouth [place] 00 :00 daily for Medical 30 days. Branch gabapentin 2021- No [id number] 600mg Take 1 Univers 600 mg 4-15 05-16 [id number] tablet by ity o f tablet 00:00: 04:59 mouth [place] 00 :00 daily for Medical 30 days. Branch amLODIPine 2021- No [id number] 5mg Take 1 Univers 5 mg tablet 4-15 05-16 [id number] tablet by ity of 00:00: 04:59 mouth [place] 00 :00 daily for Medical 30 days. Branch hydrocodone Yes 1{tbl} Take 1 Un cari /acetaminop 4-14 tablet by ity of hen (LORTAB 12:46: mouth 4 [place] 7.5-325 30 (four) Medical ORAL) times Branch daily. carvediloL Yes 25mg Take 25 mg U nivers 25 mg 4-14 by mouth 2 ity of tablet 12:46: (two) [place] 30 times Medical daily with Branch meals. montelukast Yes 10mg Take 10 mg Univers 10 mg 4-14 by mouth ity of tablet 12:46: every [place] 30 evening. Medical Branch pravastatin Yes 20mg Take 20 mg Univers 20 mg 4-14 by mouth ity of tablet 12:46: at [place] 30 bedtime. Medical Branch hydrocodone Yes 1{tbl} Take 1 Un cari /acetaminop 4-14 tablet by ity of hen (LORTAB 12:46: mouth 4 [place] as 7.5-325 30 (four) Medical ORAL) times [place] daily. carvediloL 0 Yes 25mg Take 25 mg U nivers 25 mg 4-14 by mouth 2 ity of tablet 12:46: (two) [place] 30 times Medical daily with [place] meals. montelukast 0 Yes 10mg Take 10 mg Univers 10 mg 4-14 by mouth ity of tablet 12:46: every [place] 30 evening. Medical Branch pravastatin 2021-0 Yes 20mg Take 20 mg Univers 20 mg 4-14 by mouth ity of tablet 12:46: at [place] 30 bedtime. Medical Branch PREDNISONE 2021-0 2021- No 10mg Take 10 mg Univers ORAL 4-14 04-14 by mouth 2 ity of 10:33: 00:00 (two) [place] 25 :00 times Medical daily. Branch amoxicillin 2021-0 2021- No 500mg Take 500 Univers -pot 4-14 04-14 mg by ity of clavulanate 10:33: 00:00 mouth 3 [place] 500 mg 25 :00 (three) Medical (AUGMENTIN) times [place] 500-125 mg daily. tablet gabapentin 2021-0 2021- No 600mg Take 600 U nivers 600 mg 4-14 04-14 mg by ity of tablet 10:33: 00:00 mouth 4 [place] 25 :00 (four) Medical times Branch daily. acyclovir 2021-0 2021- No 400mg Take 400 Un cari 400 mg 4-14 04-14 mg by ity of tablet 10:33: 00:00 mouth 3 [place] 25 :00 (three) Medical times Branch daily. cloNIDine 2021-2021- No .1mg Take 0.1 Uni vers 0.1 mg 4-14 04-14 mg by ity of tablet 10:33: 00:00 mouth 2 [place] 25 :00 (two) Medical times Branch daily. montelukast 2021-0 Yes 10mg 10 mg, Univ ers (SINGULAIR) 4-14 Oral, QHS, it y of tablet 10 02:00: First dose [place] mg 00 on Thu Medical 12/18/21 at Branch 2100, Until Discontinu ed, Routine pravastatin 2021-0 Yes 20mg 20 mg, Univ ers (PRAVACHOL) 4-14 Oral, QHS, it y of tablet 20 02:00: First dose [place] mg 00 on Thu Medical 12/18/21 at Branch 2100, Until Discontinu ed, Routine sennosides- 2021-0 Yes 1{tbl} 1 tablet, Univers docusate 4-14 Oral, BID, ity o f sodium 01:00: First dose [place] (SENOKOT-S) 00 on Thu Medica l 8.6-50 mg 12/18/21 at Bran ch per tablet 2000, 1 tablet Until Discontinu ed, Routine HYDROcodone 0 Yes 1{tbl} 1 tablet, Univers -acetaminop 4-14 Oral, ity of hen (NORCO 00:00: Q4HPRN, [place] 5) 5-325 mg 50 Starting Medi christo tablet 1 on Thu Branch tablet 12/18/21 at 1900, Until Discontinu ed, Routine, Pain (scale 7-10) lidocaine 2021-0 Yes [id number] 15mL Take 15 mL Univers 2% viscous 12-19 [id number] by mouth ity of 2 % 00:00: every 4 [place] solution 00 (four) Medical hours as Branch needed for Oral mucosal pain. lidocaine 2021-0 Yes [id number] 15mL Take 15 mL Univers 2% viscous -14 [id number] by mouth ity of 2 % 00:00: every 4 [place] solution 00 (four) Medical hours as Branch needed for Oral mucosal pain. amLODIPine 0 Yes 5mg 5 mg, Univer s (NORVASC) 4-13 Oral, ity of tablet 5 mg 21:45: DAILY, [place] 00 First dose Medical on Thu Branch 12/18/21 at 1645, Until Discontinu ed, Routine ipratropium 0 Yes 3mL 3 mL, Unive rs -albuteroL -13 Inhalation ity of (DUONEB) 21:00: , QID, [place] 0.5 mg-3 00 First dose Medic al mg(2.5 mg on Thu Branch base)/3 mL 12/18/21 at nebulizer 1600, solution 3 Until mL Discontinu ed, Routine polyethylen 2021-0 Yes 17g 17 g, Unive rs e glycol 4-13 Oral, ity of 3350 powder 19:00: DAILY, [place] 17 g 00 First dose Medical on Thu12/18/21 at 1400, Until Discontinu ed, Routine lidocaine 2021-0 Yes 15mL 15 mL, Univer s 2% viscous 13 Oral, ity of (LIDOCAINE 18:51: Q4HPRN, [place] VISCOUS) 2 46 Starting Medic al % solution on Thu 15 mL 12/18/21 at 1351, Until Discontinu ed, Routine, Oral mucosal pain guaiFENesin 0 Yes 10mL 200 mg (10 Univers 100 mg/5 mL 4-13 mL), Oral, it y of solution 03:48: Q6HPRN, [place] 200 mg 54 Starting Medical on Thu12/17/21 at 2248, Until Discontinu ed, Routine, Cough glycerin 2021-0 Yes 1{suppo 1 Univer s (adult) 12-18 sitory} Suppositor ity of (FLEET 01:17: y, Rectal, [place] GLYCERIN 42 [id number], Medical (ADULT)) Starting suppository on Thu12/17/21 at Suppository 2017, Until Discontinu ed, Routine, Constipati on acyclovir 0 Yes 400mg 400 mg, Univ ers (ZOVIRAX) 12 Oral, TID, ity of tablet 400 16:00: First dose [place] mg 00 (after Medical last Branch modificati on) on Thu12/17/21 at 1100, Until Discontinu ed, MORGAN gabapentin 0 Yes 600mg 600 mg, Uni vers (NEURONTIN) 12 Oral, ity of tablet 600 15:30: DAILY, [place] mg 00 First dose Medical (after Branch last modificati on) on Thu12/17/21 at 1030, Until Discontinu ed, Routine lactated 2021-0 Yes 1000mL at 100 [facility] rs ringers IV 4-12 mL/hr, ity of infusion 15:15: 1,000 mL, [place] 1,000 mL 00 IV Medical Infusion, Branch CONTINUOUS , Starting on Thu12/17/21 at 1015, Until Discontinu ed, Routine HYDROcodone 2021-0 2022- No 1{tbl} 1 tablet, Univers -acetaminop 12-17 04-14 Oral, ity of hen (NORCO) 15:09: 00:01 Q6HPRN, [place] 10-325 mg 57 :28 Starting Medica l tablet 1 on Thu tablet 12/17/21 at 1009, Until Thu12/18/21 at 1901, Pain (scale 7-10) heparin 2021-0 Yes 5000U 5,000 Univers (porcine) 4-12 Units, ity of injection 13:00: Subcutaneo [place] 5,000 Units 00 us, Q12H, Med ical First dose Branch on Thu12/17/21 at 0800, Until Discontinu ed, Routine tiZANidine 0 2021- No 4mg Take 4 mg U nivers 4 mg 12-17-12 by mouth 2 ity of capsule 08:36: 00:00 (two) [place] 11 :00 times Medical daily. Branch ondansetron Yes 4mg 4 mg, Slow Univers (ZOFRAN 4-12 IV Push, ity of (PF)) 08:14: Q6HPRN, [place] injection 4 59 Starting Medi christo mg on [facility] Branch 12/17/21 at 0314, Until Discontinu ed, Routine, Nausea and Vomiting (N/V) acetaminoph Yes 650mg 650 mg, Un cari en 4-12 Oral, ity of (TYLENOL) 08:14: Q6HPRN, [place] tablet 650 47 Starting Medic al mg on [facility] Branch 12/17/21 at 0314, Until Discontinu ed, Routine, Pain (scale 1-3) NaCl 0.9% 0 2021- No 1000mL at 999 Uni vers (NS) bolus 12-16 04-12 mL/hr, ity of infusion 23:30: 01:19 1,000 mL, [place] 1,000 mL 00 :00 IV Medical Infusion, Branch ONCE, 1 dose, On Thu12/16/21 at 1830, STAT Immunizations Ordered Filled Immunization Date Status Comments [facility] e Immunization Name Name SARS-COV-2 COVID-19 2020-12-13 Completed Unive rsity of PFIZER VACCINE 00:00:00 [facility] [place] [facility] SARS-COV-2 COVID-19 2020-12-13 Completed Unive rsity of [employer] VACCINE 00:00:00 [facility] [place] [facility] SARS-COV-2 COVID-19 2020-11-22 Completed Unive rsity of PFIZER VACCINE 00:00:00 [facility] [place] [facility] SARS-COV-2 COVID-19 2020-11-22 Completed Unive rsity of PFIZER VACCINE 00:00:00 [facility] [place] [facility] Vital Signs Vital Name Observation Time Observation Value Comments Source Heart rate 2021-12-19 17:10:00 78 /min [facility] Respiratory rate 2021-12-19 17:10:00 18 /min [facility] Oxygen saturation in 2021-12-19 17:10:00 96 /min [facility] Arterial blood by [facility] Pulse oximetry Branch Systolic blood 2021-12-19 16:50:00 156 mm[Hg] Univer sity of pressure [facility] Diastolic blood 2021-12-19 16:50:00 79 mm[Hg] [facility] Body temperature 2021-12-19 16:50:00 37.28 [facility] Body weight 2021-12-19 09:03:00 43.5 kg [facility] BMI 2021-12-19 09:03:00 16.99 kg/m2 [facility] Body height 2021-12-17 05:52:00 160 cm [facility] Procedures Procedure Date / Time Performing Clinician Source Performed BASIC METABOLIC PANEL (NA, 2021-12-19 13:47:00 Henrietta Riley [facility] K, CL, CO2, GLUCOSE, BUN, Medica l Branch CREATININE, [place]) CBC WITHOUT DIFF 2021-12-19 13:47:00 Henrietta Riley [facility] BASIC METABOLIC PANEL (NA, 2021-12-18 08:01:00 Anderson Shannon [facility] K, CL, CO2, GLUCOSE, BUN, Mahmoud Medica l Branch CREATININE, [place]) CBC WITH DIFF 2021-12-18 08:01:00 Vinod Bauer o f [facility] US RETROPERITONEAL LIMITED 2021-12-18 00:39:52 Henrietta Riley [facility] BASIC METABOLIC PANEL (NA, 2021-12-17 08:52:00 Anderson Shannon [facility] K, CL, CO2, GLUCOSE, BUN, Mahmoud Medica Branch CREATININE, [place]) URINALYSIS 2021-12-17 01:30:00 Singer [facility] URINE DRUG (IMMUNOASSAY) - 2021-12-17 01:29:00 Edward [facility] COMPREHENSIVE DRUG SCREEN [facility] W/O REFLEX XR CHEST 1 VW 2021-12-17 00:49:20 Singer [facility] HB ECG ROUTINE & RHYTHM 2021-12-17 00:21:33 Singer [facility] CT HEAD WO CONTRAST 2021-12-17 00:19:27 Ramos Pelaez [facility] ACUTE CARE VENOUS BLOOD 2021-12-17 00:07:00 Edward [facility] BLOOD CULTURE SCREEN 2021-12-16 23:48:00 Singer Ramos [facility] AMMONIA, PLASMA 2021-12-16 23:48:00 Singer [facility] TROPONIN I 2021-12-16 23:48:00 Singer [facility] COMP. METABOLIC PANEL 2021-12-16 23:48:00 Singer [facility] ([id number]) Medical Branch ETHANOL 2021-12-16 23:48:00 Edward [facility] CBC WITH DIFF 2021-12-16 23:48:00 Singer [facility] LACTIC ACID WHOLE BLOOD 2021-12-16 23:48:00 Singer [facility] NOTICE OF PRIVACY 2021-12-16 22:54:50 Doctor Ras [facility] PRACTICES [facility] [place] [facility] ADMISSION 2021-12-16 05:01:00 Doctor Ras [facility] [place] [facility] Encounters Start End Encounter Admission Attending Care Care Encounter Source Date/Time Date/Time Type Type Clinicians Facility Department ID 2021-12-20 2021-12-20 Transition CHIDI Warren [id number] Univers 00:00:00 00:00:00 of Rick MARRERO [id number] it y of JORGE [id number] Adrianne natarajan [id number] [address] 2021-12-16 2021-12-19 Emergency Ramos Pelaez [facility] [id number] Univers 18:26:00 12:46:00 Edward [facility] [id number] ity of Anderson Vee Shannon [id number] 6 [place] Henrietta Riley [facility] [id number] [address] ([facility]) 2021-12-16 2021-12-19 Outpatient X RILEYHENRIETTA REAL [facility] [id number] [facility] 18:26:00 12:46:00 HENRIETTA RILEY [facility] Results Test Description Test Time Test Comments Results Result Comments Source BASIC METABOLIC PANEL (NA, K, CL, CO2, GLUCOSE, BUN, 2021-12 14:20:29 CREATININE, CA) Test Item Value Reference Range Interpretation Comme nts NA (test code = 1493305289) 133 mmol/L 135-145 L K (test code = 6673879454) 3.7 mmol/L 3.5-5.0 S light hemolysis CL (test code = 2288506674) 101 mmol/L 98-108 CO2 TOTAL (test code = 26 mmol/L 23-31 3961247893) AGAP (test code = 2-16 2867969307) BUN (test code = 19 mg/dL 7-23 Slight hemo lysis 2627376876) GLUCOSE (test code = 102 mg/dL 70-110 8680649915) CREATININE (test code = 0.81 mg/dL 0.50-1.04 4424745360) CALCIUM (test code = 8.6 mg/dL 8.6-10.6 9182545104) eGFR (test code = mL/min/1.73m2 9695832256) WOJCIECH (test code = WOJCIECH) Association of Glomerular Filtration Rate (GFR) and Staging of Kidney Disease* + + +--- +| GFR (mL/min/1.73 m2) ?| With Kidney Damage ?| ?Without Kidney Damage+ -----+ --+ ---+| ?>90 ?| ?Stage one ?| ? Normal ?+ + +-- +| ?60-89 ?| ?Stage two ?| ? Decreased GFR ? + + +--- +| ?30-59 ?| ?Stage three ?| ? Stage three ? + + +--- +| ?15-29 ?| ?Stage four ? | ? Stage four ?+ + +-- +| ?<15 (or dialysis) ? ?| ?Stage five ? | ? Stage five ?+ + +-- + *Each stage assumes the associated GFR level has been in effect for at least three months. ?Stages 1 to 5, with or without kidney disease, indicate chronic kidney disease. Notes: Determination of stages one and two (with eGFR >59mL/min/1.73 m2) requires estimation of kidney damage for at least three months as defined by structural or functional abnormalities of the kidney, manifested by either:Pathological abnormalities or Markers of kidney damage (including abnormalities in the composition of the blood or urine or abnormalities in imaging tests). Lab Interpretation (test Abnormal code = 99002-1) [facility] WITHOUT [id number] 13:57:46 Test Item Value Reference Range Interpretation Comments WBC (test code = 6690-2) See_Comment [A utomated message] The system [employer] generated this result transmit maral reference range : 4.30 - 11.10 10*3/?L. The reference range was not used to interpret this result as normal/abnormal . RBC (test code = 789-8) See_Comment L [Au tomated message] The system [employer] generated this result transmit maral reference range : 3.93 - 5.25 10* 6/?L. The reference r giovanni was not used to interpret this result as normal/abnormal . HGB (test code = 718-7) 11.8 g/dL 11.6-15.0 HCT (test code = 4544-3) 35.8 % 35.7-45.2 MCH (test code = 785-6) 31.6 pg 25.9-32.8 MCV (test code = 787-2) 96.0 fL 80.6-95.5 H MCHC (test code = 786-4) 33.0 g/dL 31.6-35.1 PLT (test code = 777-3) See_Comment [Au tomated message] The system [employer] generated this result transmit maral reference range : 166 - 358 10*3/?L. The reference range was not used to interpret this result as normal/abnormal . MPV (test code = 11.7 fL 9.5-12.9 59130-3) RDW-CV (test code = 16.5 % 12.0-15.5 H 788-0) RDW-SD (test code = 58.3 fL 39.0-49.9 H 30604-3) NRBC x10^3 (test code = See_Comment [Au tomated message] 4862386714) The system [employer] generated this result transmit maral reference range : 10*3/?L. The reference range was not used to interpret this result as normal/abnormal . NRBC/100 WBC (test code See_Comment [Au tomated message] = 0416444838) The system [facility] generated this result transmit maral reference range : 0.0 - 10.0 /100 WBC s. The reference r giovanni was not used to interpret this result as normal/abnormal . IPF % (test code = 5364735664) Lab Interpretation (test Abnormal code = 35987-1) [facility] METABOLIC PANEL (NA, K, CL, CO2, GLUCOSE, BUN, CREATININE, CA)2021-12-18 08:32:08 Test Item Value Reference Range Interpretation Comments NA (test code = 136 mmol/L 135-145 0012221628) K (test code = 3.8 mmol/L 3.5-5.0 5367795432) CL (test code = 100 mmol/L 98-108 2274687863) CO2 TOTAL (test code = 32 mmol/L 23-31 H 3763299745) AGAP (test code = 2-16 1259268219) BUN (test code = 37 mg/dL 7-23 H 2583312828) GLUCOSE (test code = 97 mg/dL 70-110 5747690203) CREATININE (test code = 1.16 mg/dL 0.50-1.04 H 4926448836) CALCIUM (test code = 8.5 mg/dL 8.6-10.6 L 3356175568) eGFR (test code = mL/min/1.73m2 8083368464) WOJCIECH (test code = WOJCIECH) Association of Glomerular Filtration Rate (GFR) and Staging of Kidney Disease* + --+ --+ ------+| GFR (mL/min/1.73 m2) ?| With Kidney Damage ?| ?Without Kidney Damage+ --------+ --------+ +| ?>90 ?| ?Stage one ?| ? Normal ?+ ---+ ---+ -------+| ?60-89 ?| ?Stage two ?| ? Decreased GFR ? + --+ --+ ------+| ?30-59 ?| ?Stage three ?| ? Stage three ? + --+ --+ ------+| ?15-29 ?| ?Stage four ? | ? Stage four ?+ ---+ ---+ -------+| ?<15 (or dialysis) ? ?| ?Stage five ? | ? Stage five ?+ ---+ ---+ -------+ *Each stage assumes the associated GFR level has been in effect for at least three months. ?Stages 1 to 5, with or without kidney disease, indicate chronic kidney disease. Notes: Determination of stages one and two (with eGFR >59mL/min/1.73 m2) requires estimation of kidney damage for at least three months as defined by structural or functional abnormalities of the kidney, manifested by either:Pathological abnormalities or Markers of kidney damage (including abnormalities in the composition of the blood or urine or abnormalities in imaging tests). Lab Interpretation Abnormal (test code = 59929-6) [facility] WITH [id number] 08:14:04 Test Item Value Reference Range Interpretation Comments WBC (test code = See_Comment [Automated 8172-2) message] The sy stem which generated this result transmitted reference range : 4.30 - 11.10 10*3/?L. The reference range was not used to interpret this result as normal/abnormal . RBC (test code = See_Comment L [Automated 919-8) message] The sy stem which generated this result transmitted reference range : 3.93 - 5.25 10*6/?L. The reference range was not used to interpret this result as normal/abnormal . HGB (test code = 11.3 g/dL 11.6-15.0 L 718-7) HCT (test code = 35.0 % 35.7-45.2 L 4544-3) MCV (test code = 98.3 fL 80.6-95.5 H 787-2) MCH (test code = 31.7 pg 25.9-32.8 785-6) MCHC (test code = 32.3 g/dL 31.6-35.1 786-4) RDW-SD (test code = 59.1 fL 39.0-49.9 H 36616-4) RDW-CV (test code = 16.4 % 12.0-15.5 H 788-0) PLT (test code = See_Comment [Automated 777-3) message] The sy stem which generated this result transmitted reference range : 166 - 358 10*3/ ?L. The reference r giovanni was not used to interpret this result as normal/abnormal . MPV (test code = 12.4 fL 9.5-12.9 97482-2) NRBC/100 WBC (test See_Comment [Automat ed code = 1117071143) message] The system which generated this result transmitted reference range : 0.0 - 10.0 /100 WBCs. The refer ence range was not u sed to interpret th is result as normal/abnormal . NRBC x10^3 (test code See_Comment [Auto mated = 8391110043) message] The s ystem which generated this result transmitted reference range : 10*3/?L. The reference range was not used to interpret this result as normal/abnormal . GRAN MAT (NEUT) % 64.8 % (test code = 770-8) IMM GRAN % (test code 0.60 % = 3632359837) LYMPH % (test code = 25.2 % 736-9) MONO % (test code = 8.6 % 5905-5) EOS % (test code = 0.6 % 713-8) BASO % (test code = 0.2 % 706-2) GRAN MAT x10^3(ANC) 5.35 10*3/uL 1.88-7.09 (test code = 5514974977) IMM GRAN x10^3 (test 0.05 10*3/uL 0.00-0.06 code = 9484241483) LYMPH x10^3 (test code 2.08 10*3/uL 1.32-3.29 = 731-0) MONO x10^3 (test code 0.71 10*3/uL 0.33-0.92 = 742-7) EOS x10^3 (test code = 0.05 10*3/uL 0.03-0.39 711-2) BASO x10^3 (test code <0.03 0.01-0.07 = 704-7) Lab Interpretation Abnormal (test code = 86388-2) [facility] METABOLIC PANEL (NA, K, CL, CO2, GLUCOSE, BUN, CREATININE, CA)2021-12-17 09:27:08 Test Item Value Reference Range Interpretation Comments NA (test code = 137 mmol/L 135-145 2856407411) K (test code = 3.5 mmol/L 3.5-5.0 3281745760) CL (test code = 100 mmol/L 98-108 4067485889) CO2 TOTAL (test code = 31 mmol/L 23-31 7468613557) AGAP (test code = 2-16 7727057811) BUN (test code = 41 mg/dL 7-23 H 0764593652) GLUCOSE (test code = 148 mg/dL 70-110 H 5487733870) CREATININE (test code = 1.53 mg/dL 0.50-1.04 H 0917857236) CALCIUM (test code = 8.4 mg/dL 8.6-10.6 L 0564615065) eGFR (test code = mL/min/1.73m2 8264917490) WOJCIECH (test code = WOJCIECH) Association of Glomerular Filtration Rate (GFR) and Staging of Kidney Disease* + --+ --+ ------+| GFR (mL/min/1.73 m2) ?| With Kidney Damage ?| ?Without Kidney Damage+ --------+ --------+ +| ?>90 ?| ?Stage one ?| ? Normal ?+ ---+ ---+ -------+| ?60-89 ?| ?Stage two ?| ? Decreased GFR ? + --+ --+ ------+| ?30-59 ?| ?Stage three ?| ? Stage three ? + --+ --+ ------+| ?15-29 ?| ?Stage four ? | ? Stage four ?+ ---+ ---+ -------+| ?<15 (or dialysis) ? ?| ?Stage five ? | ? Stage five ?+ ---+ ---+ -------+ *Each stage assumes the associated GFR level has been in effect for at least three months. ?Stages 1 to 5, with or without kidney disease, indicate chronic kidney disease. Notes: Determination of stages one and two (with eGFR >59mL/min/1.73 m2) requires estimation of kidney damage for at least three months as defined by structural or functional abnormalities of the kidney, manifested by either:Pathological abnormalities or Markers of kidney damage (including abnormalities in the composition of the blood or urine or abnormalities in imaging tests). Lab Interpretation Abnormal (test code = 27841-4) [facility] Test Item Value Reference Range Interpretation Comments ALCOHOL (test code = <10 mg/dL 4208802472) WOJCIECH (test code = WOJCIECH) <10 Itatgikv33-572 Toxic>100 Depression of MOLD WASHER>400 Fatalities Reported [facility] [id number] 01:04:04 Test Item Value Reference Range Interpretation Comments AMMONIA (test code = 3112041325) <9 9-33 L Lab Interpretation (test code = Abnormal 67070-4) [facility] [id number] 00:58:14 Test Item Value Reference Interpretation Comments Range TROPONIN I (test 0.021 ng/mL See_Comment [Automated code = 3584210972) message] The system which generated this result transmitted reference range : <=0.034. The reference range was not used to interpret this result as normal/abnormal . WOJCIECH (test code = Reference (Normal) WOJCIECH) Range (defined by the 99th percentile reference limit): <= 0.034 ng/mL Note: Cardiac troponin begins to rise 3-4 hours after the onset of ischemia. Repeat in 4-6 hours if the sample was drawn within 3-4 hours of the onset of the symptom and found normal. Diagnosis of myocardial injury is made with acute changes in cTn concentrations with at least one serial sample above the 99th percentile upper reference limit (URL), taken together with the patient's clinical presentation. Biotin has been reported to cause a negative bias, interpret results relative to patient's use of biotin. Lab Interpretation Normal (test code = 46437-4) [facility]. METABOLIC PANEL ([id number])2021-12-17 00:46:51 Test Item Value Reference Range Interpretation Comments NA (test code = 135 mmol/L 135-145 8660015416) K (test code = 4.0 mmol/L 3.5-5.0 8320296713) CL (test code = 97 mmol/L 98-108 L 4570326433) CO2 TOTAL (test code = 29 mmol/L 23-31 5492127286) AGAP (test code = 2-16 9428899072) BUN (test code = 44 mg/dL 7-23 H 5369095478) GLUCOSE (test code = 123 mg/dL 70-110 H 4880797706) CREATININE (test code = 1.59 mg/dL 0.50-1.04 H 9244419340) TOTAL BILI (test code = 0.7 mg/dL 0.1-1.9 1480084470) CALCIUM (test code = 8.9 mg/dL 8.6-10.6 1695513446) T PROTEIN (test code = 7.1 g/dL 6.3-8.2 2117101178) ALBUMIN (test code = 3.7 g/dL 3.5-5.0 1550301364) ALK PHOS (test code = 66 U/L 34-122 6449989811) ALTv (test code = 14 U/L 5-35 2-6) AST(SGOT) (test code = 25 U/L 13-40 2403099456) eGFR (test code = mL/min/1.73m2 9536347387) WOJCIECH (test code = WOJCIECH) Association of Glomerular Filtration Rate (GFR) and Staging of Kidney Disease* + --+ --+ ------+| GFR (mL/min/1.73 m2) ?| With Kidney Damage ?| ?Without Kidney Damage+ --------+ --------+ +| ?>90 ?| ?Stage one ?| ? Normal ?+ ---+ ---+ -------+| ?60-89 ?| ?Stage two ?| ? Decreased GFR ? + --+ --+ ------+| ?30-59 ?| ?Stage three ?| ? Stage three ? + --+ --+ ------+| ?15-29 ?| ?Stage four ? | ? Stage four ?+ ---+ ---+ -------+| ?<15 (or dialysis) ? ?| ?Stage five ? | ? Stage five ?+ ---+ ---+ -------+ *Each stage assumes the associated GFR level has been in effect for at least three months. ?Stages 1 to 5, with or without kidney disease, indicate chronic kidney disease. Notes: Determination of stages one and two (with eGFR >59mL/min/1.73 m2) requires estimation of kidney damage for at least three months as defined by structural or functional abnormalities of the kidney, manifested by either:Pathological abnormalities or Markers of kidney damage (including abnormalities in the composition of the blood or urine or abnormalities in imaging tests). Lab Interpretation Abnormal (test code = 64876-8) [facility] WITH [id number] 00:45:50 Test Item Value Reference Range Interpretation Comments WBC (test code = See_Comment [Automated 7990-2) message] The sy stem which generated this result transmitted reference range : 4.30 - 11.10 10*3/?L. The reference range was not used to interpret this result as normal/abnormal . RBC (test code = See_Comment [Automated 819-8) message] The sy stem which generated this result transmitted reference range : 3.93 - 5.25 10*6/?L. The reference range was not used to interpret this result as normal/abnormal . HGB (test code = 12.7 g/dL 11.6-15.0 718-7) HCT (test code = 38.9 % 35.7-45.2 4544-3) MCV (test code = 97.5 fL 80.6-95.5 H 787-2) MCH (test code = 31.8 pg 25.9-32.8 785-6) MCHC (test code = 32.6 g/dL 31.6-35.1 786-4) RDW-SD (test code = 58.3 fL 39.0-49.9 H 63902-1) RDW-CV (test code = 16.2 % 12.0-15.5 H 788-0) PLT (test code = See_Comment [Automated 777-3) message] The sy stem which generated this result transmitted reference range : 166 - 358 10*3/ ?L. The reference r giovanni was not used to interpret this result as normal/abnormal . MPV (test code = 12.6 fL 9.5-12.9 76416-8) NRBC/100 WBC (test See_Comment [Automat ed code = 2592592788) message] The system which generated this result transmitted reference range : 0.0 - 10.0 /100 WBCs. The refer ence range was not u sed to interpret th is result as normal/abnormal . NRBC x10^3 (test code <0.01 See_Comment [Auto mated = [id number]) message] The s ystem which generated this result transmitted reference range : 10*3/?L. The reference range was not used to interpret this result as normal/abnormal . GRAN MAT (NEUT) % 84.9 % (test code = 770-8) IMM GRAN % (test code 0.60 % = 3287567983) LYMPH % (test code = 10.3 % 736-9) MONO % (test code = 4.1 % 5905-5) EOS % (test code = 0.0 % 713-8) BASO % (test code = 0.1 % 706-2) GRAN MAT x10^3(ANC) 8.07 10*3/uL 1.88-7.09 H (test code = 9081673638) IMM GRAN x10^3 (test 0.06 10*3/uL 0.00-0.06 code = 4967583028) LYMPH x10^3 (test code 0.98 10*3/uL 1.32-3.29 L = 731-0) MONO x10^3 (test code 0.39 10*3/uL 0.33-0.92 = 742-7) EOS x10^3 (test code = <0.03 0.03-0.39 L 711-2) BASO x10^3 (test code <0.03 0.01-0.07 = 704-7) Lab Interpretation Abnormal (test code = 07166-4) [id number] Test Item Value Reference Range Interpretation Comments LACTIC ACID (test code = 1.12 mmol/L 0.50-2.20 3651260938) Lab Interpretation (test code = Normal 89838-4) [facility]"
[2022-10-21] MEDS ORDERED: METHYLPREDNISOLONE 125 MG INJ ONE (10:37)
[2022-10-21] MEDS ORDERED: MAGNESIUM SULFATE 1 gm IVPB 1 GM/100 ML BAG IV ONE (10:38)
[2022-10-21] MEDS ORDERED: LEVALBUTEROL 1.25 MG/3 ML NEB ONE (10:38)
--- NOTE | 2022-10-21 10:42 | RAD REPORT ---
EXAM DESCRIPTION: RAD - Chest Single View - 10/21/2022 10:31 am CLINICAL HISTORY: DYSPNEA COMPARISON: Chest Pa And Lat (2 Views) dated 06/29/2020; Chest Pa And Lat (2 Views) dated 06/16/2020 ; Chest Single View dated 06/14/2020; Chest Pa And Lat (2 Views) dated 02/18/2018 FINDINGS: Lines: None. Lungs: Coarsened interstitial markings with reticulonodular airspace disease bilaterally. Pleural: No significant pleural effusions or pneumothorax. Cardiac: The heart size is within normal limits. Mediastinum: Within normal limits. Bones: No acute fractures. Other: Calcified breast prostheses. IMPRESSION: Reticulonodular airspace disease bilaterally concerning for inflammation or infection, i ncluding from viral sources. No consolidation.
[2022-10-21 11:07] LABS: Absolute Lymphocytes (CBC) 1.4 K/uL (0.7-4.9); Lymphocytes % 22.5 % (15.3-44.8); MCV 93.6 fL (80-100); MPV 10.2 fL (7.6-11.3); RBC Red Blood Cell Count 4.16 M/uL (3.86-4.86)
[2022-10-21 11:11] LABS: Protime INR 0.9
[2022-10-21 11:27] LABS: Albumin 2.8 g/dL (3.4-5.0); Bilirubin Direct 0.1 mg/dL (0-0.2); Bilirubin Total 0.3 mg/dL (0.2-1.0); Magnesium 2.4 mg/dL (1.6-2.4); Potassium 3.9 mmol/L (3.5-5.1); Protein, Total 7.7 g/dL (6.4-8.2)
[2022-10-21 11:30] LABS: Troponin High Sensitivity 423.5 pg/mL (<58.9)
[2022-10-21] MEDS ORDERED: ASPIRIN 81 MG CHEWABLE TABLET ONE (11:54)
[2022-10-21 12:24] LABS: SARS-COV-2 RT PCR POSITIVE (NEGATIVE)
--- NOTE | 2022-10-21 13:37 | ER ---
Nurse's Notes [facility] Name: Ni Mcgowan Age: 76 yrs Sex: Female : 1945 Arrival Date: 10/21/2022 Time: 10:19 Bed 8 Private MD: Diagnosis: Pneumonia due to SARS-associated coronavirus;COPD/ Chronic obstructive pulmonary disease with (acute) exacerbation;COPD/ Chronic obstructive pulmonary disease with acute lower respiratory infection;Hypoxemia Presentation: 10/21 10:26 Chief complaint: Patient states: Patient states having shortness of breath for a couple sg5 days. EMS reports oxygen at RA was 77%. EMS gave x 1 Albuterol/Atrovent treatment en-route. On arrival patient was 86% RA and placed on 2L NC. Coronavirus screen: Client denies travel out of the [place] in the last 14 days. Client presents with at least one sign or symptom that may indicate coronavirus-19. Standard/surgical mask placed on the client. Ebola Screen: Patient denies travel to an Ebola-affected area in the 21 days before illness onset. No symptoms or risks identified at this time. Initial Sepsis Screen: Does the patient meet any 2 criteria? No. Patient's initial sepsis screen is negative. Does the patient have a suspected source of infection? No. Patient's initial sepsis screen is negative. Risk Assessment: Do you want to hurt yourself or someone else? Patient reports no desire to harm self or others. Note Patient has a history of smoking, emphysema, COPD. Onset of symptoms is unknown. Care prior to arrival: Medication(s) given: Albuterol Neb Atrovent Neb x 1. 10:26 Method Of Arrival: EMS: [facility] sg5 10:26 Acuity: ANNA 2 sg5 Triage Assessment: 10:45 General: Appears uncomfortable, Behavior is cooperative, restless, Reports fatigue for sg5 2-3 days. Pain: Complains of pain in back Pain currently is 7 out of 10 on a pain scale. Quality of pain is described as sharp, Alleviated by medications, repositioning, Aggravated by increased activity, repositioning. EENT: No deficits noted. No signs and/or symptoms were reported regarding the EENT system. Neuro: No deficits noted. Level of Consciousness is awake, alert, obeys commands, Oriented to person, place, time, situation. Cardiovascular: Reports fatigue, shortness of breath, Heart tones S1 S2 present Rhythm is regular. Respiratory: Reports shortness of breath at rest on exertion since for a couple days Breath sounds are clear in right upper lobe, left upper lobe, left posterior upper lobe and right posterior upper lobe Breath sounds are diminished in left posterior lower lobe and right posterior lower lobe. GI: No deficits noted. No signs and/or symptoms were reported involving the gastrointestinal system. : No deficits noted. No signs and/or symptoms were reported regarding the genitourinary system. Derm: No deficits noted. No signs and/or symptoms reported regarding the dermatologic system. Musculoskeletal: No deficits noted. Historical: - PMHx: 11:30 emphysema; COPD; Chronic back pain; Hypertensive disorder; ld1 - Immunization history:: Adult Immunizations up to date, Client reports receiving the 2nd dose of the Covid vaccine, patient states completed series unknown date Last tetanus immunization: unknown. - Social history:: Smoking status: Patient reports the use of cigarette tobacco products, smokes one-half pack cigarettes per day. - Family history:: not pertinent. - Hospitalizations: : No recent hospitalization is reported. - Code Status:: DNAR. Screenin:36 [facility] ED Fall Risk Assessment (Adult) Impaired Gait Yes (1 pt) Mobility Assist sg5 Device Used Yes (1 pt) Score/Fall Risk Level 0 - 2 = Low Risk Oriented to surroundings, Maintained a safe environment, Educated pt \T\ family on fall prevention, incl call for assistance when getting out of bed, Assessed \T\ reinforced patient's understanding of fall precautions, Hourly rounding (assess needs \T\ fall precautionary measures) done. Abuse screen: Denies threats or abuse. Nutritional screening: No deficits noted. Tuberculosis screening: No symptoms or risk factors identified. Assessment: 11:35 Reassessment: No changes from previously documented assessment. Patient has allergy to sg5 P[employer] computer not accepting allergy when added. 13:00 Reassessment: No changes from previously documented assessment. Patient and/or family ld1 updated on plan of care and expected duration. Pain level reassessed. Patient is alert, oriented x 3, equal unlabored respirations, skin warm/dry/pink. 14:05 Reassessment: Patient appears in no apparent distress at this time. Patient and/or ld1 family updated on plan of care and expected duration. Pain level reassessed. Vital Signs: 10:26 BP 155 / 73; Pulse 74; Resp 24; Temp 97.9; Pulse Ox 94% 2 lpm ; sg5 11:31 BP 120 / 61; Pulse 60; Resp 19; Pulse Ox 100% on Nebulizer Mask; ld1 11:32 Temp 97.9; sg5 11:33 Weight 40.37 kg; Height 5 ft. 0 in. (152.40 cm); sg5 11:33 Pain 0/10; sg5 12:30 BP 111 / 74; Pulse 60; Resp 19; Pulse Ox 95% 2 lpm ; sg5 13:00 BP 90 / 51; Pulse 56; Resp 12; Pulse Ox 97% on 2 lpm NC; ld1 13:30 BP 84 / 52; Pulse 56; Resp 14; Pulse Ox 96% on 2 lpm NC; ld1 14:06 BP 140 / 70; Pulse 57; Resp 18; Pulse Ox 95% on 2 lpm NC; ld1 11:33 Body Mass Index 17.38 (40.37 kg, 152.40 cm) sg5 13:30 500ml BOLUS initiated for low BP. ld1 ED Course: 10:19 Patient arrived in ED. rn 10:19 Lalito Benson MD is Attending Physician. rn 10:26 Muriel Diaz, EMERSON is Primary Nurse. sg5 10:49 Triage completed. sg5 10:55 Initial lab(s) drawn, by ga, sent to lab. First set of blood cultures drawn. Inserted em1 saline lock: 20 gauge in right forearm, using aseptic technique. Blood collected. 10:55 Troponin HS Sent. em1 10:55 Ptt, Activated Sent. em1 10:55 PT-INR Sent. em1 10:55 NT PRO-BNP Sent. em1 10:56 Magnesium Sent. em1 10:56 Hepatic Function Sent. em1 10:56 CBC with Diff Sent. em1 10:56 BMP Sent. em1 11:34 Arm band placed on right wrist. sg5 11:36 No provider procedures requiring assistance completed. sg5 11:36 Patient has correct armband on for positive identification. Placed in gown. Bed in low sg5 position. Call light in reach. Side rails up X2. Adult w/ patient. Valuables Given to family. 13:36 Acosta Escobar MD is Hospitalizing Provider. rn 13:40 Cj Burden MD is Hospitalizing Provider. rn 15:20 Patient admitted, IV remains in place. sg5 19:22 Primary Nurse role handed off by Muriel Diaz RN mw2 Administered Medications: 11:15 Drug: SOLU-Medrol (methylPrednisoLONE) 125 mg Route: IVP; Site: right antecubital; sg5 11:15 Drug: Xopenex (levalbuterol) (3) 1.25 mg Route: Inhalation; sg5 11:15 Drug: Magnesium Sulfate 1 grams Route: IVPB; Infused Over: 1 hrs; Site: right sg5 antecubital; 12:50 Follow up: Response: No adverse reaction; IV Status: Completed infusion; IV Intake: sg5 100ml 11:50 Drug: Aspirin Chewable Tablet 324 mg Route: PO; sg5 14:03 Drug: NS 0.9% 500 ml Route: IV; Rate: bolus; Site: right antecubital; sg5 Medication: 15:19 VIS not applicable for this client. sg5 Intake: 12:50 IV: 100ml; Total: 100ml. sg5 Outcome: 13:36 Decision to Hospitalize by Provider. rn 15:19 Admitted to ER Hold. Please see [facility] for further documentation. sg5 15:19 Condition: stable 15:19 Instructed on the need for admit. 19:56 Patient left the ED. jb4 Signatures: Lalito Benson MD MD rn Martinez, Eric em1 Minh Arevalo RN RN jb4 Crystal Brown mw2 Roxana Porter RN RN ld1 Muriel Diaz RN RN sg5 Corrections: (The following items were deleted from the chart) 11: 11:24 PMHx: Emphysema; sg5 sg5 11: 11:24 PMHx: Congestive heart failure; sg5 sg5 11: 11:24 PMHx: chronic back pain; sg5 sg5 11:24 PMHx: Hypertensive disorder; sg5 sg5 11:24 PSHx: Tonsillectomy; sg5 sg5 : 11:24 PSHx: breast augmentation; sg5 sg5 : 11:24 PSHx: Hyststerectomy; sg5 sg5 : 11:24 PSHx: hernia repair; sg5 sg5 11:26 11:24 PSHx: Splenectomy; sg5 sg5 13:13 12:30 BP 133 / 87; Pulse 68bpm; Resp 16bpm; Pulse Ox 97% RA; Pain 10/17; sg5 sg5
--- NOTE | 2022-10-21 13:37 | EDPHYS ---
Physician Documentation [facility] Name: Ni Mcgowan Age: 76 yrs Sex: Female : 1945 Arrival Date: 10/21/2022 Time: 10:19 Bed 8 Private MD: ED Physician Lalito Benson HPI: 10/21 10:26 This 76 yrs old Female presents to ER via Unassigned with complaints of sob. rn 10:26 The patient has shortness of breath at rest. Onset: The symptoms/episode began/occurred rn 4 day(s) ago. Duration: The symptoms are continuous. The patient's shortness of breath is aggravated by coughing, exertion, talking, is alleviated by sitting up, application of supplemental oxygen. Associated signs and symptoms: Pertinent positives: productive cough, Pertinent negatives: fever, hemoptysis. Severity of symptoms: At their worst the symptoms were moderate in the emergency department the symptoms are unchanged. The patient has experienced a previous episode. The patient has not recently seen a physician. Historical: - PMHx: 11:30 emphysema; COPD; Chronic back pain; Hypertensive disorder; ld1 - Immunization history:: Adult Immunizations up to date, Client reports receiving the 2nd dose of the Covid vaccine, patient states completed series unknown date Last tetanus immunization: unknown. - Social history:: Smoking status: Patient reports the use of cigarette tobacco products, smokes one-half pack cigarettes per day. - Family history:: not pertinent. - Hospitalizations: : No recent hospitalization is reported. - Code Status:: DNAR. ROS: 10:26 Constitutional: Negative for fever, chills, and weight loss, Eyes: Negative for injury, rn pain, redness, and discharge, Cardiovascular: Negative for chest pain, palpitations, and edema, Respiratory: + sob and cough Abdomen/GI: Negative for abdominal pain, nausea, vomiting, diarrhea, and constipation, MS/Extremity: Negative for injury and deformity, Skin: Negative for injury, rash, and discoloration, Neuro: + generalized weakness Exam: 10:26 Constitutional: Thin female, + mild tachypnea Head/Face: Normocephalic, atraumatic. alternative energy engineer: Regular rate and rhythm. No pulse deficits. Respiratory: + mild tachypnea with diminished breath sounds bilaterally Abdomen/GI: soft, non-tender Skin: Warm, dry MS/ Extremity: Pulses equal, no cyanosis. Neurovascular intact. Full, normal range of motion. Equal circumference. Neuro: Awake and alert, GCS 15 15:52 ECG was reviewed by the Attending Physician. rn Vital Signs: 10:26 BP 155 / 73; Pulse 74; Resp 24; Temp 97.9; Pulse Ox 94% 2 lpm ; sg5 11:31 BP 120 / 61; Pulse 60; Resp 19; Pulse Ox 100% on Nebulizer Mask; ld1 11:32 Temp 97.9; sg5 11:33 Weight 40.37 kg; Height 5 ft. 0 in. (152.40 cm); sg5 11:33 Pain 0/10; sg5 12:30 BP 111 / 74; Pulse 60; Resp 19; Pulse Ox 95% 2 lpm ; sg5 13:00 BP 90 / 51; Pulse 56; Resp 12; Pulse Ox 97% on 2 lpm NC; ld1 13:30 BP 84 / 52; Pulse 56; Resp 14; Pulse Ox 96% on 2 lpm NC; ld1 14:06 BP 140 / 70; Pulse 57; Resp 18; Pulse Ox 95% on 2 lpm NC; ld1 11:33 Body Mass Index 17.38 (40.37 kg, 152.40 cm) sg5 13:30 500ml BOLUS initiated for low BP. ld1 MDM: 10:19 Patient medically screened. rn 10:26 Differential diagnosis: Anemia Anxiety Reaction CHF exacerbation, Chronic Obstructive rn Pulmonary Disease Myocardial Infarction pneumonia, Pneumothorax pulmonary edema, reactive airway disease. Historians other than the Patient: Caregiver reports sob for 4 days, oxygen was in 70s prior to arrival, not on oxygen, still smokes. . 13:35 Antibiotic administration: Not indicated, the patient has a suspected viral illness. rn Data reviewed: vital signs, nurses notes, lab test result(s), EKG, radiologic studies, plain films. Consideration of Admission/Observation Patient was admitted/placed on observation. Escalation of care including admission/observation considered. Management of patient was discussed with the following: Hospitalist: Management and case discussed with hospitalist service. Independent interpretation of the following test(s) in the Emergency Department EKG: See my EKG interpretation above X-Ray: My interpretation is CXR neg for lobar pneumonia. + interstitial disease. Counseling: I had a detailed discussion with the patient and/or guardian regarding: the historical points, exam findings, and any diagnostic results supporting the discharge/admit diagnosis, lab results, radiology results, the need for further work-up and treatment in the hospital. Response to treatment: the patient's symptoms have mildly improved after treatment, and as a result, I will admit patient. 10/21 10:20 Order name: BMP rn 10/21 10:20 Order name: Blood Culture Adult (2) rn 10/21 10:20 Order name: CBC with Diff rn 10/21 10:20 Order name: Hepatic Function rn 10/21 10:20 Order name: Magnesium rn 10/21 10:20 Order name: NT PRO-BNP rn 10/21 10:20 Order name: PT-INR rn 10/21 10:20 Order name: Ptt, Activated rn 10/21 10:20 Order name: Troponin HS rn 10/21 10:20 Order name: Lactate w/ 2H reflex if indic. rn 10/21 10:20 Order name: COVID-19/FLU A+B rn 10/21 11:08 Order name: CBC with Automated Diff; Complete Time: 11:30 EDMS 10/21 11:11 Order name: Protime (+INR); Complete Time: 11:30 EDMS 10/21 11:11 Order name: PTT, Activated Partial Thromb; Complete Time: 11:30 ED10/21 10:20 Order name: XRAY CXR (1 view) rn 10/21 10:20 Order name: EKG; Complete Time: 10:20 rn 10/21 10:43 Order name: RAD; Complete Time: 11:30 EDMS 10/21 11:20 Order name: Lactate w/ 2H reflex if indic.; Complete Time: 11:30 EDMS 10/21 11:30 Order name: Basic Metabolic Panel; Complete Time: 11:46 EDMS 10/21 11:30 Order name: Liver (Hepatic) Function; Complete Time: 11:46 EDMS 10/21 11:30 Order name: Troponin High Sensitivity; Complete Time: 11:46 EDMS 10/21 11:30 Order name: NT PRO-BNP; Complete Time: 11:46 EDMS 10/21 11:30 Order name: Magnesium; Complete Time: 11:46 EDMS 10/21 12:24 Order name: COVID-19/FLU A+B; Complete Time: 12:25 EDMS 10/21 17:07 Order name: Troponin High Sensitivity [facility] 10/21 10:20 Order name: Cardiac monitoring; Complete Time: 10:30 rn 10/21 10:20 Order name: EKG - Nurse/Tech; Complete Time: 10:30 rn 10/21 10:20 Order name: IV Saline Lock; Complete Time: 10:55 rn 10/21 10:20 Order name: Labs collected and sent; Complete Time: 10:55 rn 10/21 10:20 Order name: O2 Per Protocol; Complete Time: 10:30 rn 10/21 10:20 Order name: O2 Sat Monitoring; Complete Time: 10:30 rn EC:52 Rate is 62 beats/min. Rhythm is regular. Left axis deviation noted. QRS is positive in rn lead I and negative in lead aVF. VA interval is normal. QRS interval is normal. QT interval is normal. No Q waves. T waves are Normal. No ST changes noted. Clinical impression: NSR w/ Non-specific ST/T Changes. Interpreted by me. Reviewed by me. Administered Medications: 11:15 Drug: SOLU-Medrol (methylPrednisoLONE) 125 mg Route: IVP; Site: right antecubital; sg5 11:15 Drug: Xopenex (levalbuterol) (3) 1.25 mg Route: Inhalation; sg5 11:15 Drug: Magnesium Sulfate 1 grams Route: IVPB; Infused Over: 1 hrs; Site: right sg5 antecubital; 12:50 Follow up: Response: No adverse reaction; IV Status: Completed infusion; IV Intake: sg5 100ml 11:50 Drug: Aspirin Chewable Tablet 324 mg Route: PO; sg5 14:03 Drug: NS 0.9% 500 ml Route: IV; Rate: bolus; Site: right antecubital; sg5 Disposition Summary: 10/21/22 13:36 Hospitalization Ordered Hospitalization Status: Inpatient Admission rn Condition: Stable rn Problem: new rn Symptoms: have improved rn Bed/Room Type: Standard rn Provider: Cj Burden(10/21/22 13:40) rn Location: Telemetry/MedSurg (Inpatient)(10/21/22 18:30) dw Room Assignment: 222(10/21/22 18:30) dw Diagnosis - Pneumonia due to SARS-associated coronavirus rn - COPD/ Chronic obstructive pulmonary disease with (acute) exacerbation rn - COPD/ Chronic obstructive pulmonary disease with acute lower respiratory infection rn - Hypoxemia rn Forms: - Medication Reconciliation Form rn - SBAR form rn Signatures: Dispatcher [employer] Salima Shen RN RN Lalito Naranjo MD MD rn Leal, Jahala, RN RN jl7 Roxana Porter RN RN ld1 Muriel Diaz RN RN sg5 Corrections: (The following items were deleted from the chart) 11:26 11:24 PMHx: Emphysema; sg5 sg5 11:26 11:24 PMHx: Congestive heart failure; sg5 sg5 11:26 11:24 PMHx: chronic back pain; sg5 sg5 11:26 11:24 PMHx: Hypertensive disorder; sg5 sg5 11:26 11:24 PSHx: Tonsillectomy; sg5 sg5 11:26 11:24 PSHx: breast augmentation; sg5 sg5 11:26 11:24 PSHx: Hyststerectomy; sg5 sg5 11:26 11:24 PSHx: hernia repair; sg5 sg5 11:26 11:24 PSHx: Splenectomy; sg5 sg5 13:40 13:36 Acosta Escobar rn, rn 14:38 13:36 Telemetry/MedSurg (Inpatient) brian [email or web address] 14:38 13:36 brian [email or web address] 18:30 14:[address] [facility] ER HOLD jl7 dw 18:30 [facility]
[2022-10-21] MEDS ORDERED: NA CHLORIDE 0.9% 500 ML ONE (14:04)
[2022-10-21] MEDS ORDERED: ALBUTEROL 2.5 MG/3 ML NEB SOL NEB PRN (15:37)
[2022-10-21] MEDS ORDERED: ONDANSETRON 4 MG/2 ML VIAL IV PRN (15:37)
[2022-10-21] MEDS ORDERED: ACETAMINOPHEN 500 MG TAB PO PRN (15:37)
[2022-10-21] MEDS ORDERED: METHYLPREDNISOLONE 40 MG INJ ONE (17:49)
[2022-10-21] MEDS: METHYLPREDNISOLONE 40 MG INJ IV SCH (17:53)
[2022-10-22] MEDS: METHYLPREDNISOLONE 40 MG INJ IV SCH ×3 (00:31→11:23)
[2022-10-22 06:10] LABS: Hematocrit 37.5 % (36.0-45.0); Lymphocytes % 12.4 % (15.3-44.8); MCV 93.8 fL (80-100); MPV 10.6 fL (7.6-11.3)
[2022-10-22 06:31] LABS: Potassium 3.8 mmol/L (3.5-5.1)
[2022-10-22 06:33] LABS: Troponin High Sensitivity 166.1 pg/mL (<58.9)
--- NOTE | 2022-10-22 07:46 | HP ---
Date of Admission: 10/21/2022 Chief Complaint: Shortness of breath, feeling weak, and poor appetite. History Of Present Illness: Ms. Mcgowan is a very pleasant 76-year-old female patient with multiple co morbidities, came into emergency room with few days history of worsening problem with feeling weak, p oor appetite, shortness of breath, cough, chest congestion, and coughing up some colored mucus. The patient got exposed to COVID-19 infection, few days ago, as she says at the apartment where she lives , in that complex, some people recently had COVID-19 infection. After she came into emergency room, she was evaluated, admitted to the hospital with COVID-19 infection, acute exacerbation of COPD, and pneumonia, and abnormal troponin level. I saw her in the emergency room. Her son and daughter, they were both present with her at bedside. Allergies: TO CITALOPRAM, MAKES HER FEEL WEIRD. IODINE CAUSES RASH. OXYCODONE CAUSES HALLUCINATION . Medications: List reviewed. Review of Systems: Respiratory: As mentioned above. Constitutional: As mentioned above. All other systems reviewed and negative. Past Medical History: COPD, hypertension, hyperlipidemia, gastroesophageal reflux disease, leg edema , spinal stenosis in lumbar spine region, osteoarthritis at multiple sites, ITP in remission. Past Surgical History: Tonsillectomy, hysterectomy, foot surgery, splenectomy, and breast augmentati on. Family History: Father ; had Alzheimer disease, hypertension, rheumatoid arthritis. Mother ; had hypertension and carotid artery stenosis. Sister with hypertension, stroke, COPD, coronary art robbie disease. Social History: Positive for smoking. Use of alcohol, negative. Physical Examination: Vital Signs: When she first arrived, temperature 97.9, pulse 74, respiratory rate 24, blood pressure 155/73, oxygen saturation 94%. Height 5 feet, weight 89 pounds. General: Awake, alert, oriented, not in distress. HEENT: Head atraumatic, normocephalic. Conjunctivae nonerythematous. Sclerae white. Mouth, no thr ush or edema noted. Ears/Nose, no mass, lesion, discharge noted. Neck: Supple. No JVD, lymph nodes, bruit, thyromegaly noted. Lungs: Bilateral good equal air entry. Clear to auscultation. No rhonchi. No rales. Heart: Normal heart sounds, no murmur or gallop. Abdomen: Soft, bowel sounds normal. No guarding, rigidity, tenderness, mass, hepatosplenomegaly, dis tention, or bruit noted. Extremities: No leg edema. No calf tenderness. Skin: No rash, ulcer, cellulitis. Lymphatics: No lymph node enlargement in neck, supraclavicular, infraclavicular region. Neuro: No focal neurological deficit. Chest: Unremarkable. External Genitalia: Deferred. Rectal: Deferred. Laboratory Data: White count 6.3, hemoglobin 12.9, platelets 175. Sodium 133, potassium 3.9, chlori de 97, bicarb 28, BUN 43, creatinine 1.63, glucose 108. Liver function tests unremarkable. Troponin 423 on the first set, second set 338. ProBNP 5186. COVID- 19 test positive. Influenza A and B fabián t negative. Chest x-ray shows bilateral reticular opacities consistent with pneumonia. Impression: 1.COVID-19 infection. 2.Pneumonia. 3.Acute exacerbation of chronic obstructive pulmonary disease. 4.Abnormal troponin. 5.Volume depletion. 6.Hypertension. 7.Hyperlipidemia. 8.Gastroesophageal reflux disease. 9.Osteoarthritis, multiple sites. Plan: We will go ahead and admit the patient to hospital for further evaluation and management of th is problem. The patient is appropriate for inpatient and is expected to spend 2 midnights in hospita . We will go ahead and get serial cardiac enzymes. Different possibilities regarding abnormal trop onin. Discussed with the patient and chances are likely that this is demand ischemia. We will repea t troponin level tomorrow morning and we will also get an echo with Doppler and consult Cardiology. Aspirin was given in the emergency room, 81 mg aspirin daily. For her COPD exacerbation, we will go ahead and continue oxygen replacement therapy along with nebulizer treatment and IV steroid, which is Solu-Medrol as per order. For pneumonia, we will go ahead and start her on ceftriaxone as well as a zithromycin. For COVID-19 infection, we will go ahead and consult Dr. Funes. SCD was ordered for DVT prophylaxis. We will monitor her blood pressure and make decision regarding her antihypertensiv e medication depending on the blood pressure. For volume depletion, we will give IV fluid. We will repeat blood work, followup electrolytes and renal function. Overall prognosis is guarded. I did ta lk to her regarding advance directives in presence of her daughter and son in the emergency room and the patient informed me clearly that in the event of cardiopulmonary arrest, she does not want any he [facility] measures like CPR, defibrillation, or ventilator support and she wants DNR order to be in place. I will see her tomorrow for followup. MONSE/SUKI Voice ID: [id number]
[2022-10-22] MEDS ORDERED: ASPIRIN 325 MG TAB PO SCH (09:00)
[2022-10-22] MEDS: TIZANIDINE 4 MG TABLET PO SCH ×5 (09:00→21:55)
[2022-10-22] MEDS ORDERED: HOME MED 1 EA UNK (Pravastatin Sodium [Pravastatin Sodium] 20 MG Tablet) PO SCH (09:00)
[2022-10-22] MEDS: acetaZOLAMIDE 250 MG TAB PO SCH (09:22)
[2022-10-22] MEDS: GABAPENTIN 300 MG CAP PO SCH ×4 (09:22→21:56)
[2022-10-22] MEDS: MONTELUKAST 10 MG TAB PO SCH (09:22)
[2022-10-22] MEDS: cloNIDine HCL 0.1 MG TAB PO SCH ×2 (09:24→21:56)
[2022-10-22] MEDS: HYDROCODONE/APAP 7.5/325 MG TAB PO SCH ×3 (09:24→21:56)
[2022-10-22] MEDS: ASPIRIN EC 81 MG TAB PO SCH (09:25)
[2022-10-22] MEDS: NA CHLORIDE 0.9% 1,000 ML IV SCH (09:25)
[2022-10-22] MEDS: carvediloL 25 MG TAB PO SCH ×2 (09:25→21:56)
[2022-10-22] MEDS: CEFTRIAXONE 1,000 MG in NA CHLORIDE 0.9% 50 ML IVPB SCH (09:26)
[2022-10-22] MEDS: AZITHROMYCIN IV 250 MG in NA CHLORIDE 0.9% 250 ML IVPB SCH (09:26)
[2022-10-22] MEDS: ARFORMOTEROL TARTRATE 15 MCG/2 ML VIAL.NEB NEB SCH ×2 (11:53→19:35)
--- NOTE | 2022-10-22 11:54 | P.CNS ---
Date of Consult: 10/22/22 Reason for Consult: COVID infection possible COPD exacerbation Chief Complaint: Shortness of breath History of Present Illness: Patient is 76 years of age admitted with worsening shortness of breath cough for the past week patient is an active smoker denies any fever or chills Allergies oxycodone [From Percocet] Allergy (Verified 06/14/20 18:28) hallucination Home Medications: Albuterol Sulfate [Proair Hfa] 8.5 gm IH SEECOM PRN 06/14/20 Aspirin [Aspirin EC 81 MG] 81 mg PO BEDTIME 06/14/20 Carvedilol [Coreg] 25 mg PO BID 06/14/20 Gabapentin 1 cap PO QID 06/14/20 Montelukast [Singulair] 10 mg PO DAILY 06/14/20 Pantoprazole [Protonix Tab] 40 mg PO [id number] 06/14/20 Pravastatin Sodium 20 mg PO DAILY 06/14/20 Tizanidine [Zanaflex] 2 mg PO TID 06/14/20 Triamterene/Hydrochlorothiazid [Triamterene-Hctz 37.5-25 mg Cp] 1 tab PO DAILY 06/14/20 acetaZOLAMIDE [Diamox*] 1 tab PO DAILY 06/14/20 cloNIDine HCL [Clonidine HCl] 0.1 mg PO BID 06/14/20 Hydrocodone Bit/Acetaminophen [Hydrocodon-Acetaminoph 7.5-325] 7.5 - 325 mg PO TID 10/22/22 - Past Medical/Surgical History Diabetic: No -: neuropathy -: severe scoliosis -: fibromyalgia -: emphysema -: high cholesterol - Family History Father Medical History: Heart disease Mother Medical History: Stroke - Social History Smoking Status: Current every day smoker Alcohol use: No CD- Drugs: No Caffeine use: No Review of Systems General: Weakness Respiratory: Cough, Shortness of Breath Physical Examination Temp Pulse Resp BP Pulse Ox 97.8 F 60 16 124/63 96 10/22/22 11:00 10/22/22 11:00 10/22/22 08:00 10/22/22 11:00 10/22/22 11:00 General: Alert, In no apparent distress, Oriented x3 Respiratory: Clear to auscultation bilaterally, Diminished Cardiovascular: No edema, Normal pulses Gastrointestinal: Normal bowel sounds, Soft and benign - Problems (1) COPD exacerbation Current Visit: Yes Status: Acute Plan: Patient is 76 years of age active smoker admitted with worsening dyspnea Labs reviewed CBC is normal mild renal failure opponent's are declining most likely demand ischemia vital signs are stable oxygenation satisfactory chest x-ray COPD changes renal function is improved may have a prerenal component positive for coronavirus doubt coronavirus pneumonia no evidence of clinical pneumonia changed to p.o. antibiotics p.o. prednisone nebulized bronchodilators possible discharge in 1 to 2 days no COVID therapy right now
--- NOTE | 2022-10-22 13:02 | EKG ---
Test Date: 2022-10-21 Test Time: 10:21:16 Umbrella Tipper: MARGO MEASUREMENT RESULTS: Intervals: Rate: 62 TN: 166 QRSD: 78 QT: 414 QTc: 420 [place]on: P: 82 TN: 166 QRS: -84 T: 92 INTERPRETIVE STATEMENTS: Normal sinus rhythm with sinus arrhythmia Left axis deviation Nonspecific ST and T wave abnormality Abnormal ECG Compared to ECG 06/14/2020 12:12:34 ST (T wave) deviation now present T-wave abnormality no longer present Electronically Signed On 10-22-22 12:59:11 PRODUCT CONTROL AND LOGISTICS ANALYST by Fredy Rod
--- NOTE | 2022-10-22 13:43 | ECHO ---
HEIGHT: 5 ft 0 in WEIGHT: 89 lb 0 oz DATE OF STUDY: 10/22/[address]: Jignesh Burden MD 2-DIMENSIONAL: YES M.MODE: YES DOPPLER: YES COLOR FLOW: YES TDS: NO PORTABLE: YES DEFINITY: NO BUBBLE STUDY: NO DIAGNOSIS: ABNORMAL CARDIAC ENZYMES CARDIAC HISTORY: CATHERIZATION: NO SURGERY: NO PROSTHETIC VALVE: NO PACEMAKER: NO MEASUREMENTS (cm) DIASTOLIC (NORMALS) SYSTOLIC (NORMALS) IVSd 0.9 (0.6-1.2) LA Diam 2.0 (1.9-4.0) LVEF 57% LVIDd 2.9 (3.5-5.7) LVIDs 2.1 (2.0-3.5) %FS 29% LVPWd 1.0 (0.6-1.2) Ao Diam 2.7 (2.0-3.7) 2 DIMENSIONAL ASSESSMENT: RIGHT ATRIUM: NORMAL LEFT ATRIUM: NORMAL RIGHT VENTRICLE: NORMAL LEFT VENTRICLE: NORMAL TRICUSPID VALVE: MODERATE TR MITRAL VALVE: NORMAL PULMONIC VALVE: NORMAL AORTIC VALVE: NORMAL PERICARDIAL EFFUSION: NONE AORTIC ROOT: NORMAL LEFT VENTRICULAR WALL MOTION: NORMAL. DOPPLER/COLOR FLOW: SEE BELOW. COMMENTS: 1. POOR WINDOWS. 2. LEFT VENTRICULAR EJECTION FRACTION IS NORMAL 55-60%. 3. NORMAL WALL MOTION. 4. MODERATE TRICUSPID REGURGITATION. 5. RIGHT VENTRICULAR SYSTOLIC PRESSURE IS 37 mmHg + RIGHT ATRIAL PRESSURE. TECHNOLOGIST: Christopher KAPOOR
[2022-10-22] MEDS: IPRATROPIUM BROM 0.5MG/2.5ML NEB SCH ×2 (14:49→19:35)
[2022-10-22] MEDS: ENSURE ENLIVE 237 ML CAN PO SCH (21:00)
[2022-10-22] MEDS: predniSONE 20 MG TAB PO SCH (21:55)
[2022-10-22] MEDS: ATORVASTATIN 10 MG TAB PO SCH (21:56)
[2022-10-23] MEDS: IPRATROPIUM BROM 0.5MG/2.5ML NEB SCH ×4 (02:00→20:00)
[2022-10-23] MEDS: NA CHLORIDE 0.9% 1,000 ML IV SCH (04:07)
[2022-10-23] MEDS: PANTOPRAZOLE 40MG TABLET PO SCH (05:28)
[2022-10-23] MEDS: ARFORMOTEROL TARTRATE 15 MCG/2 ML VIAL.NEB NEB SCH ×2 (08:32→20:00)
[2022-10-23] MEDS: TIZANIDINE 4 MG TABLET PO SCH ×3 (09:32→21:00)
[2022-10-23] MEDS: MONTELUKAST 10 MG TAB PO SCH (09:33)
[2022-10-23] MEDS: acetaZOLAMIDE 250 MG TAB PO SCH (09:33)
[2022-10-23] MEDS: ASPIRIN EC 81 MG TAB PO SCH (09:34)
[2022-10-23] MEDS: HYDROCODONE/APAP 7.5/325 MG TAB PO SCH ×3 (09:34→21:00)
[2022-10-23] MEDS: GABAPENTIN 300 MG CAP PO SCH ×4 (09:34→21:00)
[2022-10-23] MEDS: cloNIDine HCL 0.1 MG TAB PO SCH ×2 (09:34→21:00)
[2022-10-23] MEDS: carvediloL 25 MG TAB PO SCH ×2 (09:34→21:00)
[2022-10-23] MEDS: CEFTRIAXONE 1,000 MG in NA CHLORIDE 0.9% 50 ML IVPB SCH (09:35)
[2022-10-23] MEDS: predniSONE 20 MG TAB PO SCH ×2 (09:35→21:00)
[2022-10-23] MEDS: ENSURE ENLIVE 237 ML CAN PO SCH ×2 (09:36→21:00)
--- NOTE | 2022-10-23 09:55 | PN ---
Date of Progress Note: 10/22/2022 Subjective: The patient was seen this morning for followup. Her daughter was with her at bedside. She was complaining of her back pain, which is her chronic ongoing problem and she takes hydrocodone as prescribed by her pain management doctor. Objective: Vital Signs: Reviewed. HEENT: Unremarkable. Lungs: Clear to auscultation. Heart: Sounds normal. Abdomen: Soft. Bowel sounds normal. No guarding, rigidity, tenderness, or distention. Extremities: No leg edema. Laboratory Data: White count 8, hemoglobin 12.2, platelets 176. Sodium 132, potassium 3.8, chloride 98, bicarb 27, BUN 53, creatinine 1.54, glucose 127. Troponin 166. Impression: 1.COVID-19 infection. 2.Acute exacerbation of chronic obstructive pulmonary disease. 3.Pneumonia. 4.Hypertension. 5.Chronic back pain. 6.Volume depletion. Plan: We will go ahead and continue IV fluid per order, continue antibiotics, continue steroid medic ations. The patient's cardiac enzymes shows that there is no evidence of any myocardial infarction. Elevated troponin is due to demand ischemia. Echocardiogram will be done today. We will follow up with pin inserter regulator and construction laborer as consultation has been requested. The patient was very much co ncerned about her hydrocodone, and all her medications and her home medications were ordered for her. Hydrocodone harkins, she wanted to take it just like the way she takes it at home, which obviously barry t schedule is not fixed, but she wanted to use her own medications and take it on her own. I informe d the patient and the patient's daughter that we will have to follow the hospital policy regarding na rcotic medication and we will just have charge-nurse assist the patient how they can handle her narco tic pain medications and await that the patient gets it the way she takes it at home, but at the same time we do not want her to keep taking her own medications without nursing staff being aware of it a s we definitely will have concern about safety issues here, and all those details were discussed with the patient and the patient's daughter. The daughter seems to understand. The patient just was not able to understand what I was trying to tell, but daughter was able to understand the details as we were discussing. I will see her tomorrow for followup. MONSE/MODL Voice ID: [id number] Report ID: [id number]
[2022-10-23] MEDS: AZITHROMYCIN IV 250 MG in NA CHLORIDE 0.9% 250 ML IVPB SCH (10:50)
--- NOTE | 2022-10-23 14:53 | RAD REPORT ---
EXAM DESCRIPTION: XR Chest, 1 View CLINICAL HISTORY: The patient is 76 years old and is Female; COVID, COPD, pneumonia [facility] MAIN TECHNIQUE: Frontal view of the chest. COMPARISON: No relevant prior studies available. FINDINGS: LUNGS: Left greater than right bibasilar airspace disease, favoring pneumonia versus at electasis, though overlying peripherally calcified bilateral breast implants obscure the bilateral kyree ng bases. PLEURAL SPACE: No pneumothorax. No appreciated pleural effusion. HEART: Unremarkable. No cardiomegaly. MEDIASTINUM: Unremarkable. BONES/JOINTS: Unremarkable. VASCULATURE: Calcified atherosclerosis of the thoracic aorta. IMPRESSION: Left greater than right bibasilar airspace disease, favoring pneumonia versus atelectasi s, though overlying peripherally calcified bilateral breast implants obscure the bilateral lung bases . Electronically signed by: Jose Florence MD 10/23/2022 6:34 AM TERMINAL GAUGER SUPERVISOR Due to temporary technical issues with the PACS/Fluency reporting system, reports are being signed by the in house radiologists without review as a courtesy to insure prompt reporting. The interpreting radiologist is fully responsible for the content of the report.
[2022-10-23] MEDS: ATORVASTATIN 10 MG TAB PO SCH (21:00)
--- NOTE | 2022-10-23 23:31 | CON ---
Date of Consultation: 10/22/2022 Reason For Consultation: Elevated troponin. History Of Present Illness: This is a 76-year-old female who presented to the emergency room due to feeling weak, short of breath with poor appetite, chest congestion, and coughing with sputum producti on. The patient was diagnosed with COVID-19 infection pneumonia. Troponin was slightly elevated. S he denies having any chest pain and troponin was flat on 3 sets. Denies having any chest pain. Past Medical History: COPD, hypertension, dyslipidemia, acid reflux, and osteoarthritis. Medications: Refer to reconciliation sheet for detailed list. Allergies: OXYCODONE. Family History: No premature coronary artery disease or cancer. Social History: She does not smoke or drink. Does not use any drugs. Review of Systems: All systems reviewed and they were negative except as mentioned in HPI. Physical Examination: Vital Signs: Reviewed. Head And Neck: Pupils are equal and reactive to light. Intact eye movements. No JVD. No cervical lymphadenopathy. Neck is supple. Thyroid is not enlarged. Lungs: Clear to auscultation bilaterally. No rhonchi, wheezing, or crackles. No accessory muscle u se. Heart: Irregular. No extra sounds. Abdomen: Soft, nontender. Bowel sounds positive. No organomegaly. No masses or hernia. No rigidi ty or rebound. Extremities: No clubbing or cyanosis. Intact pulses. Skin: No rash noted. Neurologic: Alert, awake, and oriented x3. No acute focal deficits appreciated. Investigations: Troponin trended down from 423 to 166. Assessment/recommendation: 1.Elevated troponin, this is demand ischemia. The patient is asymptomatic and she had an echocardio gram with normal ejection fraction and normal wall motion and confirms the diagnosis of demand ischem ia. At this point, no further cardiac workup is recommended and we may plan for outpatient stress te st to further evaluate once the COVID infection has completely cleared. 2.COVID infection, being managed by Dr. Burden and the patient is clinically stable. 3.[id number] renal failure, probably dehydration component. SR/MODL Voice ID: [id number] Report ID: [id number]
--- NOTE | 2022-10-24 00:22 | PN ---
Date of Progress Note: 10/23/2022 Subjective: The patient was seen this morning for followup. The patient's daughter reported the pat priscila was having confusion and hallucinations overnight and this morning when I saw her, she appeared weak and tired compared to her normal. No new complaints or problems reported. Objective: Vital Signs: Reviewed. HEENT: Unremarkable. Lungs: Bilateral good equal air entry. Clear to auscultation. No wheezing. No rales. Heart: Sounds normal. Abdomen: Soft. Bowel sounds normal. No guarding, rigidity, tenderness, or distention. Extremities: No leg edema. Impression: 1.COVID-19 infection. 2.Pneumonia. 3.Acute exacerbation of chronic obstructive pulmonary disease. 4.Acute respiratory failure with hypoxia. 5.Hypertension. 6.Chronic back pain. Plan: We will go ahead and continue her pain medications per order. Continue current empiric antibi otics. We will continue current steroid therapy, oxygen nebulizer treatment, and physical therapy to work with the patient. I did talk to patient and the patient's daughter and suggested for patient shanda carmen consider to go to group home facility before she is able to return back home, as she lives by herself, and she will not have anyone available to provide 24-hour care upon discharge, so that will be the probably best and the safest thing for her to consider and recommended for the patient and kristopher huang to talk to Social Service and Social Service consultation was requested for placement. I have co mmunicated with Dr. Funes, who will be covering this patient as of tomorrow morning as a hospitalist in my absence until Thursday heri carpio MONSE/MODL Voice ID: [id number] Report ID: [id number]
[2022-10-24] MEDS: IPRATROPIUM BROM 0.5MG/2.5ML NEB SCH ×4 (02:00→20:20)
[2022-10-24 02:27] LABS: Blood Gas Oxyhemoglobin 87.6 % (94-97); Blood O2 Saturation 89.8 % (92-98.5)
[2022-10-24] MEDS: NA CHLORIDE 0.9% 1,000 ML IV SCH ×4 (04:19→21:38)
[2022-10-24] MEDS: PANTOPRAZOLE 40MG TABLET PO SCH (05:54)
[2022-10-24] MEDS: ARFORMOTEROL TARTRATE 15 MCG/2 ML VIAL.NEB NEB SCH ×2 (08:25→20:20)
[2022-10-24] MEDS: ENSURE ENLIVE 237 ML CAN PO SCH ×2 (08:53→21:00)
[2022-10-24] MEDS: cloNIDine HCL 0.1 MG TAB PO SCH ×2 (08:54→21:00)
[2022-10-24] MEDS: CEFTRIAXONE 1,000 MG in NA CHLORIDE 0.9% 50 ML IVPB SCH (08:54)
[2022-10-24] MEDS: ASPIRIN EC 81 MG TAB PO SCH (08:54)
[2022-10-24] MEDS: acetaZOLAMIDE 250 MG TAB PO SCH (08:55)
[2022-10-24] MEDS: carvediloL 25 MG TAB PO SCH ×2 (08:55→21:00)
[2022-10-24] MEDS: MONTELUKAST 10 MG TAB PO SCH (08:55)
[2022-10-24] MEDS: predniSONE 20 MG TAB PO SCH (08:56)
[2022-10-24] MEDS: HYDROCODONE/APAP 7.5/325 MG TAB PO SCH (08:56)
[2022-10-24] MEDS: TIZANIDINE 4 MG TABLET PO SCH (09:00)
[2022-10-24] MEDS: GABAPENTIN 300 MG CAP PO SCH ×4 (09:00→21:00)
[2022-10-24] MEDS: AZITHROMYCIN IV 250 MG in NA CHLORIDE 0.9% 250 ML IVPB SCH (10:08)
[2022-10-24] MEDS ORDERED: TIZANIDINE 4 MG TABLET PO PRN (10:11)
[2022-10-24] MEDS: dexAMETHasone 4 MG/ML VIAL IV SCH ×2 (10:11→21:33)
[2022-10-24] MEDS ORDERED: REMDESIVIR (EUA) 200 MG in NA CHLORIDE 0.9% 250 ML IV ONE (11:00)
[2022-10-24] MEDS: HYDROCODONE/APAP 7.5/325 MG TAB PO PRN (18:56)
[2022-10-24 19:21] VITALS: BMI 16.9
[2022-10-24] MEDS: ATORVASTATIN 10 MG TAB PO SCH (21:00)
[2022-10-24] MEDS ORDERED: NA CHLORIDE 0.9% 500 ML IV ONE (21:57)
[2022-10-25] MEDS: IPRATROPIUM BROM 0.5MG/2.5ML NEB SCH ×5 (01:55→20:15)
[2022-10-25] MEDS: PANTOPRAZOLE 40MG TABLET PO SCH (06:00)
[2022-10-25 06:30] LABS: ALT/SGPT 12 U/L (13-56); Albumin 1.5 g/dL (3.4-5.0); Alkaline Phosphatase 30 U/L (45-117); Bilirubin Total 0.4 mg/dL (0.2-1.0); Protein, Total 5.7 g/dL (6.4-8.2)
[2022-10-25 06:31] LABS: AST/SGOT 26 U/L (15-37); Bilirubin Direct < 0.1 mg/dL (0-0.2)
[2022-10-25] MEDS: ARFORMOTEROL TARTRATE 15 MCG/2 ML VIAL.NEB NEB SCH ×2 (08:28→20:15)
[2022-10-25] MEDS: carvediloL 25 MG TAB PO SCH ×2 (09:00→20:36)
[2022-10-25] MEDS: ENSURE ENLIVE 237 ML CAN PO SCH ×2 (09:00→20:36)
[2022-10-25] MEDS: AZITHROMYCIN IV 250 MG in NA CHLORIDE 0.9% 250 ML IVPB SCH (09:00)
[2022-10-25] MEDS ORDERED: REMDESIVIR (EUA) 100 MG in NA CHLORIDE 0.9% 250 ML IV SCH (09:00)
[2022-10-25] MEDS: cloNIDine HCL 0.1 MG TAB PO SCH (09:00)
[2022-10-25] MEDS: NA CHLORIDE 0.9% 1,000 ML IV SCH ×3 (09:01→22:45)
[2022-10-25] MEDS: GABAPENTIN 300 MG CAP PO SCH (09:02)
[2022-10-25] MEDS: CEFTRIAXONE 1,000 MG in NA CHLORIDE 0.9% 50 ML IVPB SCH (09:02)
[2022-10-25] MEDS: dexAMETHasone 4 MG/ML VIAL IV SCH ×2 (09:02→20:31)
[2022-10-25] MEDS: MONTELUKAST 10 MG TAB PO SCH (09:03)
[2022-10-25] MEDS: ASPIRIN EC 81 MG TAB PO SCH (09:03)
[2022-10-25] MEDS: acetaZOLAMIDE 250 MG TAB PO SCH (09:04)
--- NOTE | 2022-10-25 09:26 | P.PN ---
Subjective Date of Service: 10/24/22 Chief Complaint: Altered mental status shortness of breath Patient is unresponsive daughter present at the bedside she is actively hallucinating delirious unresponsive has gotten worse Review of Systems is unable to be obtained Physical Examination - Vital Signs Temperature: 97.9 F Blood Pressure: 106/58 Pulse: 101 Respirations: 18 Pulse Ox (%): 91 - Physical Exam General: Unresponsive Respiratory: Clear to auscultation bilaterally, Diminished Cardiovascular: No edema, Regular rate/rhythm, Normal S1 S2 Gastrointestinal: Normal bowel sounds, Soft and benign Assessment And Plan - Current Problems (Diagnosis) (1) COPD exacerbation Current Visit: Yes Status: Acute Plan: Patient admitted with COPD she is COVID-positive is not delirious and responsive not eating and drinking patient's daughter refused remdesivir she has had a reaction to antivirals before cultures so far negative continue with present treatment May need Dobbhoff if patient is not eating medication now is as needed
--- NOTE | 2022-10-25 09:31 | P.PN ---
Subjective Date of Service: 10/25/22 Chief Complaint: Altered mental status shortness of breath Still not doing well using to eat and drink daughter present at the bedside still little tachypneic Review of Systems is unable to be obtained Physical Examination - Vital Signs Temperature: 97.9 F Blood Pressure: 106/58 Pulse: 101 Respirations: 18 Pulse Ox (%): 91 - Physical Exam General: Unresponsive Respiratory: Clear to auscultation bilaterally, Diminished Cardiovascular: No edema, Regular rate/rhythm Assessment And Plan - Current Problems (Diagnosis) (1) COPD exacerbation Current Visit: Yes Status: Acute Plan: Altered mental status delirious will have a Dobbhoff tube inserted daughter present at the bedside start tube feeds IV thiamine DC Zithromax continue with ceftriaxone labs ordered patient refused remdesivir vital signs are stable slight fever reported on 10/24 cultures negative repeat chest x-ray ordered blood pressure little low we will DC clonidine use gabapentin as needed may have COVID encephalopathy
[2022-10-25 10:57] LABS: Absolute Lymphocytes (CBC) 0.1 K/uL (0.7-4.9); Lymphocytes % 2.1 % (15.3-44.8); MCV 94.7 fL (80-100); MPV 11.8 fL (7.6-11.3); RBC Red Blood Cell Count 4.22 M/uL (3.86-4.86)
[2022-10-25] MEDS: THIAMINE 200 MG/2 ML INJ IVP SCH (11:13)
[2022-10-25] MEDS: HYDROCODONE/APAP 7.5/325 MG TAB PO PRN ×2 (11:13→22:49)
--- NOTE | 2022-10-25 11:13 | RAD REPORT ---
EXAM DESCRIPTION: RAD - Chest Single View - 10/25/2022 10:58 am CLINICAL HISTORY: Pneumonia COMPARISON: Chest Single View dated 10/23/2022; Chest Single View dated 10/21/2022; Chest Pa And Lat ( 2 Views) dated 06/29/2020; Chest Pa And Lat (2 Views) dated 06/16/2020 FINDINGS: Lines: None. Lungs: Worsening bilateral airspace disease. Pleural: Possible small left effusion. Cardiac: Cardiac silhouette is largely obscured. Mediastinum: Within normal limits. Bones: No acute fractures. Other: Calcified breast prostheses. IMPRESSION: Worsened airspace disease in the lung bases concerning for pneumonia.
[2022-10-25 11:14] LABS: Potassium 3.6 mmol/L (3.5-5.1)
[2022-10-25 11:53] LABS: Blood Morphology Comment NOTED (NOT SEEN); Platelet Estimate ADEQ; White Blood Cell Scan OK (OK)
[2022-10-25 11:54] LABS: Burr Cells 2+; Polychromasia SLIGHT; Target Cells FEW; Toxic Granulation 2+
[2022-10-25] MEDS ORDERED: GABAPENTIN 100 MG CAP PO PRN (14:00)
[2022-10-25] MEDS: ENOXAPARIN 30 MG/0.3 ML SQ SCH (16:12)
[2022-10-25] MEDS: ATORVASTATIN 10 MG TAB PO SCH (20:31)
[2022-10-26] MEDS: IPRATROPIUM BROM 0.5MG/2.5ML NEB SCH ×4 (02:00→20:00)
[2022-10-26] MEDS: PANTOPRAZOLE 40MG TABLET PO SCH (05:02)
[2022-10-26 06:32] LABS: AST/SGOT 17 U/L (15-37); Albumin 1.4 g/dL (3.4-5.0); Alkaline Phosphatase 27 U/L (45-117); Bilirubin Total 0.3 mg/dL (0.2-1.0); Protein, Total 5.5 g/dL (6.4-8.2)
[2022-10-26 06:33] LABS: ALT/SGPT < 10 U/L (13-56); Bilirubin Direct < 0.1 mg/dL (0-0.2)
[2022-10-26] MEDS: ARFORMOTEROL TARTRATE 15 MCG/2 ML VIAL.NEB NEB SCH ×2 (08:00→20:00)
[2022-10-26] MEDS: ENSURE ENLIVE 237 ML CAN PO SCH (08:59)
[2022-10-26] MEDS: ASPIRIN EC 81 MG TAB PO SCH (09:00)
[2022-10-26] MEDS: acetaZOLAMIDE 250 MG TAB PO SCH (09:00)
[2022-10-26] MEDS: THIAMINE 200 MG/2 ML INJ IVP SCH (09:00)
[2022-10-26] MEDS: dexAMETHasone 4 MG/ML VIAL IV SCH ×2 (09:00→22:17)
[2022-10-26] MEDS: carvediloL 25 MG TAB PO SCH (09:00)
[2022-10-26] MEDS: CEFTRIAXONE 1,000 MG in NA CHLORIDE 0.9% 50 ML IVPB SCH (09:00)
--- NOTE | 2022-10-26 09:11 | RAD REPORT ---
EXAM DESCRIPTION: [facility] Single View10/26/2022 6:37 am CLINICAL HISTORY: Cough COMPARISON: October 20172022 FINDINGS: Mild worsening in bilateral lung opacities most prominent in the lung bases. Heart is normal size IMPRESSION: Mild worsening in a moderate bilateral pneumonia
--- NOTE | 2022-10-26 09:45 | P.PN ---
Subjective Date of Service: 10/26/22 Chief Complaint: Altered mental status shortness of breath No change/altered mental status/ Not eating or drinking Refused Dobhoff Review of Systems is unable to be obtained Physical Examination - Vital Signs Temperature: 97.4 F Blood Pressure: 107/68 Pulse: 86 Respirations: 20 Pulse Ox (%): 96 - Physical Exam General: Unresponsive Respiratory: Clear to auscultation bilaterally, Diminished, Friction rub Cardiovascular: Regular rate/rhythm, Normal S1 S2 Gastrointestinal: Normal bowel sounds, Soft and benign Musculoskeletal: No clubbing Assessment And Plan - Current Problems (Diagnosis) (1) COPD exacerbation Current Visit: Yes Status: Acute Plan: Not doing well. unresponsive Not eating start TPN, family members at the bedside not taking any p.o. pills chest x-ray looks a little worse changed to cefepime DC Rocephin although white count is still normal procalcitonin level is elevated possible superimposed infection we will also add some vancomycin still patient has encephalopathy refused remdesivir prognosis poor renal function mild improvement
[2022-10-26] MEDS: NA CHLORIDE 0.9% 1,000 ML IV SCH (09:48)
[2022-10-26] MEDS: CEFEPIME 1 GM in NA CHLORIDE 0.9% 100 ML IV SCH ×2 (10:00→21:00)
[2022-10-26] MEDS ORDERED: VANCOMYCIN 1 GM in NA CHLORIDE 0.9% 250 ML IVPB ONE (10:00)
[2022-10-26] MEDS: HYDROCODONE/APAP 7.5/325 MG TAB PO PRN (15:13)
[2022-10-26] MEDS: ENOXAPARIN 30 MG/0.3 ML SQ SCH (16:28)
[2022-10-26] MEDS: ATORVASTATIN 10 MG TAB PO SCH (21:00)
[2022-10-27] MEDS: IPRATROPIUM BROM 0.5MG/2.5ML NEB SCH ×3 (02:15→13:57)
[2022-10-27] MEDS ORDERED: VANCOMYCIN 500 MG in NA CHLORIDE 0.9% 100 ML IVPB SCH (04:00)
[2022-10-27] MEDS: NA CHLORIDE 0.9% 1,000 ML IV SCH (05:48)
[2022-10-27] MEDS ORDERED: VANCOMYCIN 500 MG/VIAL ONE (05:54)
[2022-10-27] MEDS ORDERED: NA CHLORIDE 0.9% 100 ML ONE (05:55)
[2022-10-27] MEDS: PANTOPRAZOLE 40MG TABLET PO SCH (06:00)
[2022-10-27 07:28] LABS: Potassium 4.2 mmol/L (3.5-5.1)
[2022-10-27] MEDS: ARFORMOTEROL TARTRATE 15 MCG/2 ML VIAL.NEB NEB SCH (08:00)
[2022-10-27] MEDS ORDERED: D5 0.9 NS 1,000 ML IV SCH (08:00)
[2022-10-27] MEDS: CEFEPIME 1 GM in NA CHLORIDE 0.9% 100 ML IV SCH (08:50)
[2022-10-27] MEDS: THIAMINE 200 MG/2 ML INJ IVP SCH (08:51)
[2022-10-27] MEDS: dexAMETHasone 4 MG/ML VIAL IV SCH (08:51)
[2022-10-27 10:11] LABS: Arterial Blood Carboxyhemoglob 0.7 % (0-1.5); Blood Gas Oxyhemoglobin 87.1 % (94-97); Blood O2 Saturation 89.3 % (92-98.5)
[2022-10-27] MEDS ORDERED: NA CHLORIDE 0.9% 250 ML IV ONE ×3 (12:28→14:43)
[2022-10-27 13:04] VITALS: TEMP 98.5; O2SAT 94
[2022-10-27 15:30] VITALS: BP 102/50
[2022-10-27] MEDS: ENOXAPARIN 30 MG/0.3 ML SQ SCH (17:00)
--- NOTE | 2022-10-28 08:05 | DS ---
Date of Discharge: 10/27/2022 Disposition: Discharged to go home with hospice care. Hospital Course: This is a 77-year-old very pleasant female patient, who was admitted to the [facility] after she came into emergency room with cough, congestion, shortness of breath, and generalized wea kness. Please see dictated H and P for more information. After the patient was evaluated in the ER, she was admitted to the hospital with COVID-19 infection. The patient also had some pneumonia and a cute exacerbation of COPD. Dr. Funes from Pulmonary was consulted. The patient was given empiric antibiotics as well as steroids, oxygen nebulizer treatment, and her home medications were continued . Overall, her condition deteriorated during this hospitalization and her mental status has steadily deteriorated. Initially, she was having some confusion and hallucinations and in over a period of t his past weekend, she became more and more confused, more lethargic. This morning when I saw her, th e patient's daughter was present with her. I was out of town for 2 to 3 days, so when I saw her this morning, there was a significant change in her condition as I noted from the last time when I saw he r . She was completely obtunded, was sleeping with her eyes closed, mouth open with oxygen r eplacement therapy. She would not keep the oxygen mask on, so she had a nasal cannula oxygen deliver y. She did not respond to painful stimuli when technical staff engineer was trying blood while I was talking to the patient's daughter this morning and when I was examining her, she did not respond to any painful stimuli at the nail bed either. I did have a long discussion with the patient's daughter. The patie nt has a DNR order in place as per her wishes regarding advance directives, but we talked about very poor prognosis. Over the weekend, she refused to have Dobhoff tube placement and she is not eating, drinking hardly anything and now she has remained unresponsive. I talked to the patient's daughter a s she was asking about TPN and I informed her that TPN would be a short-term treatment for nutritiona l therapy, but it will not be for long time and it has its own complications, but considering the pat ient's current condition and very poor prognosis, I did discuss with daughter regarding hospice care and she was agreeable for that and she informed me that is exactly what the patient would have wanted is to go home with the hospice care and Social Service was consulted and once arrangements completed today, the patient was discharged to go home with the hospice care. During the course of day today, the patient did not wake up at all, continued to remain unresponsive, did not eat or drink anything and at some point, her systolic blood pressure was low between 70 to 80 range, and IV fluid bolus was given that actually has helped to improve her blood pressure with systolic blood pressure around 100 and I did communicate with the patient's daughter that with this drop in blood pressure, we could qu alify her for 4 to 5 days of inpatient hospice care, but she wanted to go home today with hospice, so after arrangements completed, we discharged her to go home with hospice care. Overall prognosis is very poor and I did inform daughter that rapid downhill course is to be expected given her current co ndition. Initially, she was on ceftriaxone and azithromycin and over the weekend, her antibiotics we re changed to cefepime and vancomycin. Last chest x-ray had shown worsening of pneumonia. Final Diagnoses: 1.COVID-19 infection. 2.Pneumonia. 3.Acute exacerbation of chronic obstructive pulmonary disease. 4.Chronic respiratory failure with hypoxia, with acute exacerbation. 5.Hypertension. 6.Chronic back pain. 7.Osteoarthritis, multiple sites. 8.Hyperlipidemia. 9.Anemia. Physical Examination: General: When I saw her this morning; she was unresponsive, lying in bed with her mouth open. Vital Signs: Reviewed. HEENT: Unremarkable. Lungs: Bilateral shallow air entry. Heart: Sounds normal. Abdomen: Soft. Bowel sounds normal. No guarding, rigidity, tenderness, distention. Extremities: No leg edema. MONSE/MODL Voice ID: [id number] Report ID: [id number]
== END 2022-10-27 20:46 | disposition home or self-care (01) | DRG 177 ==
LOC: ER 10:10 → ERHOLD 13:50 → 2ND 19:15
PROVIDERS: ADMIT Internal Medicine; ATTEND Internal Medicine Sleep Medicine
PROC: 3E0336Z Introduction of Nutritional Substance into Peripheral Vein, Percutaneous Approach (ICD-10-PCS; principal; 2022-10-26)
DX: U07.1 COVID-19 (principal); E43 Unspecified severe protein-calorie malnutrition; J12.82 Pneumonia due to coronavirus disease 2019; J96.21 Acute and chronic respiratory failure with hypoxia; Z68.1 Body mass index [BMI] 19.9 or less, adult; J44.1 Chronic obstructive pulmonary disease with (acute) exacerbation; J44.0 Chronic obstructive pulmonary disease with (acute) lower respiratory infection; I24.8 Other forms of acute ischemic heart disease; G93.49 Other encephalopathy; G89.29 Other chronic pain; M54.9 Dorsalgia, unspecified; E86.9 Volume depletion, unspecified; I10 Essential (primary) hypertension; E78.5 Hyperlipidemia, unspecified; K21.9 Gastro-esophageal reflux disease without esophagitis; M19.09 Primary osteoarthritis, other specified site; F17.210 Nicotine dependence, cigarettes, uncomplicated; Z60.2 Problems related to living alone; Z66 Do not resuscitate; Z88.5 Allergy status to narcotic agent; Z88.8 Allergy status to other drugs, medicaments and biological substances; Z79.82 Long term (current) use of aspirin; Z90.710 Acquired absence of both cervix and uterus; Z79.899 Other long term (current) drug therapy
CPT/HCPCS: 0240U; 36415; 71045; 80048; 80061; 80076; 82805; 83605; 83735; 83880; 84145; 84484; 85025; 85610; 85730; 87040; 93005; 93306; 96365; 96366; 96375; 97161; 97530; 99285; J0248; J0456; J0692; J1100; J2920; J2930; J3370; J3411; J3475; J7030; J7040; J7042; J7050; J7512; J7605; J7613; J7614; J7644